=== PATIENT | female | born 1940 | race African-American/Black ===

== ENCOUNTER → 2016-04-16 | Outpatient (CLI) | payer MEDICARE, BC ==
--- NOTE | 2016-04-16 21:15 | PN ---
A 76-year-old female patient coming in for a CPAP compliancy follow-up. The patient was diagnosed having severe obstructive sleep apnea with an AHI of 29.9. Subsequently the patient was started on CPAP and currently she is being treated with CPAP therapy at a pressure of 8 cm of water. On today's compliancy follow-up, the patient is doing well. Her average CPAP use is around 4.9 hours per night. She is leaking only 5 liters per minute. Her AHI while on treatment is down to 11. I would like to see further improvement in her overall AHI while being on therapy. She was having issues with Simplus full face mask. She tells me that head gear was affecting her hair and she was looking for an alternative mask. It was noted that blood pressure was also high today and her blood pressure was 204/92 and she did not have any headaches or any focal neurological deficits. She will be discussing this with Dr. Ro her primary care physician. I strongly emphasized the patient see him as soon as possible regarding her blood pressure control. Her current Galena score is 7. Her current vital signs: BP is 204/92, pulse is 77, respirations 16, saturation 99% on room air. Temperature 97.9. Galena score is 7. GENERAL APPEARANCE: Calm, comfortable. HEENT: Short neck, crowding posterior pharynx. There is no goiter or neck masses. LUNGS: Diminished breath sounds bilaterally; otherwise clear. HEART: Sounds are regular rate and rhythm. Normal S1, S2. No S3. No murmurs. ABDOMEN: Soft, nontender, no organomegaly. EXTREMITIES: No edema, cyanosis, or clubbing. IMPRESSIONS: 1. Symptomatic obstructive sleep apnea, severe, with an AHI of 29.9, currently on CPAP at a pressure of 8 cm of water. 2. Adequate compliancy also would like to see increase in the average CPAP use per night. 3. Residual obstructive sleep apnea and the patient's AHI while on treatment is down to 11. Would like to see the study going below 5. PLAN: 1. Adjust the CPAP an auto CPAP unit with a minimum pressure of 4 and maximum pressure of 10. 2. Provide an AirFit F10 instead of the Simplus fullface mask. 3. See me back in 6 months' time in follow-up. 4. Follow up with Dr. Ro regarding blood pressure control.
== END | disposition home or self-care (01) ==
LOC: SLEEP 15:34
PROVIDERS: ATTEND Internal Medicine Critical Care Medicine
DX: G47.33 Obstructive sleep apnea (adult) (pediatric) (principal)

== ENCOUNTER 2017-02-12 11:26 | Observation (INO) | payer MEDICARE, BC ==
[2017-02-12] MEDS ORDERED: SODIUM CHLORIDE 0.9% 500 ML IV STA (12:43)
[2017-02-12] MEDS ORDERED: SODIUM CHLORIDE 0.9% 1,000 ML IV STA (12:43)
--- NOTE | 2017-02-12 12:46 | ED ---
Recheck HPI - General Chief Complaint: Recheck/Abnormal Lab/Rx Stated Complaint: HIGH BLOOD PRESSURE Time Seen by Provider: 02/12/17 12:38 Source: patient, RN notes reviewed, old records reviewed Mode of arrival: wheelchair Limitations: no limitations - History of Present Illness Initial Comments: This is a 77-year-old female history of hypertension who was here yesterday for the same treated and released who was getting her blood pressure checked today when she was supposed be getting evaluated for vertigo and found have elevated blood pressure of greater than 200 systolic. Patient denies any chest pain no fevers chills nausea vomiting sweats weakness to her arms or legs she does admit she been drinking less fluids over last several weeks. No new change in her medications no new change in food intake. - Related Data Home Medications Medication Instructions Recorded Confirmed Metoprolol Tartrate [Lopressor] 100 mg PO BID 02/12/15 02/12/17 Albuterol Sulfate [Proventil Hfa] 2 puff INHALATION RT-Q4H PRN 02/11/17 02/12/17 Arformoterol Tartrate [Brovana] 15 mcg INHALATION RT-BID 02/11/17 02/12/17 Atorvastatin [Lipitor] 20 mg PO HS 02/11/17 02/12/17 Budesonide [Pulmicort] 0.5 mg INHALATION RT-BID 02/11/17 02/12/17 Ferrous Sulfate [Feosol] 325 mg PO DAILY 02/11/17 02/12/17 Furosemide [Lasix] 10 mg PO DAILY 02/11/17 02/12/17 INSULIN LISPRO (humaLOG) [humaLOG] 8 units SQ AC-TID 02/11/17 02/12/17 Lisinopril [Zestril] 40 mg PO BID 02/11/17 02/12/17 hydrALAZINE HCL [Apresoline] 10 mg PO BID 02/11/17 02/12/17 Previous Rx's Medication Instructions Recorded Insulin Glargine [Lantus] 26 unit SQ HS #1 vial 02/14/15 Allergies Allergy/AdvReac Type Severity Reaction Status Date / Time latex Allergy Swelling,hi Verified 02/12/17 12:38 ves Review of Systems ROS Statement: Those systems with pertinent positive or pertinent negative responses have been documented in the HPI. ROS Other: All systems not noted in ROS Statement are negative. Past Medical History Past Medical History: Asthma, COPD, Diabetes Mellitus, Hypertension Additional Past Medical History / Comment(s): colitis diverticulitis History of Any Multi-Drug Resistant Organisms: None Reported Past Surgical History: Section, Hernia Repair, Hysterectomy, Joint Replacement, Orthopedic Surgery Additional Past Surgical History / Comment(s): rossana knee replacements, rossana carpal tunnel sx Past Anesthesia/Blood Transfusion Reactions: No Reported Reaction Past Psychological History: Anxiety Smoking Status: Former smoker Past Alcohol Use History: None Reported Past Drug Use History: None Reported - Past Family History Mother Family Medical History: Cancer, Diabetes Mellitus, Hypertension Father Family Medical History: Myocardial Infarction ([place]) General Exam - General Exam Comments Initial Comments: this is a well-developed well-nourished awake alert oriented 3 female Limitations: no limitations General appearance: alert, in no apparent distress Head exam: Present: atraumatic, normocephalic, normal inspection Eye exam: Present: normal appearance, PERRL, EOMI. Absent: scleral icterus, conjunctival injection, periorbital swelling ENT exam: Present: mucous membranes dry Neck exam: Present: normal inspection. Absent: tenderness, meningismus, lymphadenopathy Respiratory exam: Present: normal lung sounds bilaterally. Absent: respiratory distress, wheezes, rales, rhonchi, stridor Cardiovascular Exam: Present: regular rate, normal rhythm, normal heart sounds. Absent: systolic murmur, diastolic murmur, rubs, gallop, clicks GI/Abdominal exam: Present: soft, normal bowel sounds. Absent: distended, tenderness, guarding, rebound, rigid Extremities exam: Present: normal inspection, full ROM, normal capillary refill. Absent: tenderness, pedal edema, joint swelling, calf tenderness Back exam: Present: normal inspection Neurological exam: Present: alert, oriented X3, CN II-XII intact Psychiatric exam: Present: normal affect, normal mood Skin exam: Present: warm, dry, intact, normal color. Absent: rash Course Vital Signs 02/12/17 02/12/17 02/12/17 11:58 12:21 13:32 Temperature 97.4 F L Pulse Rate 57 L 68 65 Respiratory 18 20 18 Rate Blood Pressure 241/103 234/95 222/92 O2 Sat by Pulse 100 Oximetry 02/12/17 02/12/17 02/12/17 14:07 15:10 16:20 Temperature Pulse Rate 63 70 88 Respiratory 18 18 18 Rate Blood Pressure 194/80 215/95 174/70 O2 Sat by Pulse 97 97 Oximetry Medical Decision Making - Medical Decision Making The patient persists in having labile hypertension and some vague symptoms. This is her second visit for the same. I did discuss case with Dr. Reed patient will be admitted for evaluation of labile hypertension - Lab Data Result diagrams: 02/12/17 12:25 02/12/17 12:25 Lab Results 02/12/17 02/12/17 02/12/17 Range/Units 12:25 12: 12:25 WBC 6.8 (3.8-10.6) k/uL RBC 3.50 L (3.80-5.40) m/uL Hgb 10.5 L (11.4-16.0) gm/dL Hct 33.3 L (34.0-46.0) % MCV 95.1 (80.0-100.0) fL MCH 29.9 (25.0-35.0) pg MCHC 31.4 (31.0-37.0) g/dL RDW 14.6 (11.5-15.5) % Plt Count 216 (150-450) k/uL Neutrophils % 60 % Lymphocytes % 25 % Monocytes % 5 % Eosinophils % 7 % Basophils % 1 % Neutrophils # 4.1 (1.3-7.7) k/uL Lymphocytes # 1.7 (1.0-4.8) k/uL Monocytes # 0.3 (0-1.0) k/uL Eosinophils # 0.5 (0-0.7) k/uL Basophils # 0.0 (0-0.2) k/uL Hypochromasia Slight Sodium 141 (137-145) mmol/L Potassium 4.3 (3.5-5.1) mmol/L Chloride 103 (98-107) mmol/L Carbon Dioxide 29 (22-30) mmol/L Anion Gap 9 mmol/L BUN 15 (7-17) mg/dL Creatinine 0.89 (0.52-1.04) mg/dL Est GFR (MDRD) Af Amer >60 (>60 ml/min/1.73 sqM) Est GFR (MDRD) Non-Af >60 (>60 ml/min/1.73 sqM) Glucose 64 L (74-99) mg/dL Calcium 9.8 (8.4-10.2) mg/dL Magnesium 1.8 (1.6-2.3) mg/dL Total Bilirubin 0.6 (0.2-1.3) mg/dL AST 31 (14-36) U/L ALT 43 (9-52) U/L Alkaline Phosphatase 133 H (38-126) U/L Total Creatine Kinase 68 (30-135) U/L CK-MB (CK-2) 0.9 (0.0-2.4) ng/mL CK-MB (CK-2) Rel Index 1.3 Total Protein 7.3 (6.3-8.2) g/dL Albumin 3.7 (3.5-5.0) g/dL - EKG Data -: EKG Interpreted by Ny EKG shows normal: sinus rhythm (Normal sinus rhythm a 68. Interval 164 QRS 112 daily since QTC of 422/[address]-T wave changes) Disposition Clinical Impression: Labile hypertension Disposition: ADMITTED IP TO THIS HOSP Condition: Stable Referrals: Ross Ro DO [Primary Care Provider] - 1-2 days
[2017-02-12 13:02] LABS: Basophils % (A) 1 %; Eosinophils # (A) 0.5 k/uL (0-0.7); Eosinophils % (A) 7 %; HCT 33.3 % (34.0-46.0); HGB 10.5 gm/dL (11.4-16.0); Hypochromasia Slight; Lymphocytes # (A) 1.7 k/uL (1.0-4.8); Lymphocytes % (A) 25 %; MCH 29.9 pg (25.0-35.0); MCHC 31.4 g/dL (31.0-37.0); MCV 95.1 fL (80.0-100.0); Mean Platelet Volume 8.2; Monocytes # (A) 0.3 k/uL (0-1.0); Monocytes % (A) 5 %; Neutrophils # (A) 4.1 k/uL (1.3-7.7); Neutrophils % (A) 60 %; Platelet Count 216 k/uL (150-450); RDW 14.6 % (11.5-15.5); WBC 6.8 k/uL (3.8-10.6)
[2017-02-12 13:14] LABS: ALT 43 U/L (9-52); AST 31 U/L (14-36); Albumin 3.7 g/dL (3.5-5.0); Alkaline Phosphatase 133 U/L (38-126); Anion Gap 9 mmol/L; Blood Urea Nitrogen 15 mg/dL (7-17); Calcium 9.8 mg/dL (8.4-10.2); Carbon Dioxide 29 mmol/L (22-30); Chloride 103 mmol/L (98-107); Glucose 64 mg/dL (74-99); Magnesium 1.8 mg/dL (1.6-2.3); Potassium 4.3 mmol/L (3.5-5.1); Sodium 141 mmol/L (137-145); Total Bilirubin 0.6 mg/dL (0.2-1.3); Total Protein 7.3 g/dL (6.3-8.2)
[2017-02-12 13:30] LABS: Creatine Kinase MB 0.9 ng/mL (0.0-2.4)
[2017-02-12] MEDS ORDERED: hydrALAZINE HCL 20 MG/ML 1 ML VIAL IVP STA ×2 (13:35→15:19)
[2017-02-12] MEDS ORDERED: NALOXONE 0.4 MG/ML 1 ML VIAL IV PRN (16:53)
[2017-02-12 18:19] LABS: Glucose,Whole Blood 124 mg/dL (75-99)
[2017-02-12] MEDS ORDERED: hydrALAZINE HCL 20 MG/ML 1 ML VIAL IVP PRN (18:31)
[2017-02-12] MEDS: INSULIN ASPART 100 UNIT/ML 1 ML 10 ML VIAL SQ SCH (19:04)
[2017-02-12] MEDS: LISINOPRIL 20 MG TAB PO SCH (19:04)
[2017-02-12] MEDS: traMADol 50 MG TAB PO SCH ×2 (19:04→21:33)
[2017-02-12] MEDS: hydrALAZINE HCL 10 MG TAB PO SCH (19:05)
[2017-02-12] MEDS: METOPROLOL TARTRATE 50 MG TAB PO SCH (19:05)
[2017-02-12] MEDS: ACETAMINOPHEN TAB 500 MG TAB PO PRN (19:43)
--- NOTE | 2017-02-12 19:58 | HP ---
HISTORY AND PHYSICAL CHIEF COMPLAINT: Elevated blood pressure. BRIEF HISTORY: The patient is a 77-year-old female patient with a history of hypertension, diabetes, COPD, who presents to the ED with the complaint of high blood pressure. Patient was in the ED for same complaint yesterday, at which time blood pressure was treated and it improved and she was sent home. Yesterday the patient presented with a complaint of vertigo and upon evaluation she was found to have a systolic blood pressure greater than 200. The patient presents today with a complaint of not feeling well. Again, blood pressure was checked in the ED and systolic blood pressure was found to be to 222. The patient denies any chest pain, any vision or speech changes, any weakness or numbness in the arms or legs. She does admit to poor oral intake and weakness. PAST MEDICAL HISTORY: Significant for asthma, COPD, history of diabetes, hypertension, history of diverticulosis, anxiety. PAST SURGICAL HISTORY: Significant for section, hernia repair, hysterectomy, joint replacement and bilateral knee replacement, bilateral carpal tunnel surgery. PAST SOCIAL HISTORY: She is a former smoker, quit a long time ago. No history of alcohol abuse or drug abuse. FAMILY HISTORY: Significant for diabetes and hypertension in mother, history of MD in father. REVIEW OF SYSTEM: Constitutional: The patient has no fever or chills. HEENT: Denies vision or speech changes. Respiratory: No shortness of breath or cough or congestion. Cardiovascular: No chest pain. No palpitations. Neurological: The patient denies any focal weakness or numbness, any vision or speech changes. Musculoskeletal: Denies any back pain or any joint pain or tenderness. Endocrine: No polyuria, polydipsia. Does have history of diabetes. Heme/Oncology: No anemia. No rashes, ecchymoses or petechiae. The rest of the 14-point review of system is negative. PHYSICAL EXAMINATION: Patient is awake, alert and oriented x3. She is in no acute distress. VITAL SIGNS: Temperature 97.4, pulse 57, respirations 18, blood pressure 241/103 upon presentation to ED. Pulse ox 100%. HEENT: Atraumatic, normocephalic. Pupils equal and reactive to light. Extraocular movements intact. Buccal mucosa is fair. NECK: Supple. No goiter or lymphadenopathy. JVD is negative. No carotid bruit heard. LUNGS: Clear to auscultate. No rales or wheezes. Heart is regular rate and rhythm without any murmurs or gallop rhythm. ABDOMEN: Soft, nontender, nondistended. Bowel sounds positive. EXTREMITIES: No edema clubbing or cyanosis. Pulses are palpable. MUSCULOSKELETAL: The patient has range of motion of all 4 extremities. No joint swelling. BACK: Inspection is normal. NEUROLOGIC EXAMINATION: The patient is alert, oriented x3. Cranial nerves 2 through 12 grossly intact. No gross motor or sensory deficit. PSYCHIATRIC: The patient has normal affect and mood. SKIN: Warm, dry, intact with normal color. No rashes. LAB AND X-RAY: CBC, white blood count of 6.8, hemoglobin 10.5, hematocrit 33.3, and platelet count of 216,000. Chemical profile, sodium 141, potassium 4.3, chloride 103, bicarb 29, BUN 15, creatinine 0.8, glucose 64. EKG shows normal sinus rhythm, no acute ST-T wave changes. ASSESSMENT: 1. Accelerated hypertension. 2. Anemia. 3. Hypertension. 4. Chronic obstructive pulmonary disease with asthma. PLAN: Admit the patient to monitored floor. I am going to monitor cardiac enzymes and EKG. Will monitor vital signs per unit protocol. Will use IV hydralazine p.r.n. for markedly elevated blood pressure, systolic greater than 180. Will order neuro checks per unit protocol. Resume all home medications and will monitor CBC and order stool occult blood to check etiology of anemia. Will order iron studies. The patient is ordered DVT prophylaxis. Patient is FULL CODE. MMODL / IJN: [id number] /
[2017-02-12 21:21] LABS: Glucose,Whole Blood 111 mg/dL (75-99)
[2017-02-12] MEDS: BUDESONIDE 0.5 MG/2 ML NEBU INHALATION SCH (21:32)
[2017-02-12] MEDS: FORMOTEROL FUMARATE 20 MCG/2 ML NEBU INHALATION SCH (21:32)
[2017-02-12] MEDS: ATORVASTATIN 20 MG TAB PO SCH (21:33)
[2017-02-12] MEDS: HEPARIN SODIUM,PORCINE 5,000 UNIT/ML 1 ML VIAL SQ SCH (21:33)
[2017-02-12] MEDS: INSULIN DETEMIR 100 UNIT/ML 10 ML VIAL SQ SCH (21:34)
[2017-02-12] MEDS: ALBUTEROL NEBULIZED 2.5 MG/3 ML INHALATION PRN (21:47)
[2017-02-13] MEDS: ALBUTEROL NEBULIZED 2.5 MG/3 ML INHALATION PRN ×5 (03:34→20:11)
[2017-02-13 06:02] LABS: Glucose,Whole Blood 157 mg/dL (75-99)
[2017-02-13 06:31] LABS: Anisocytosis Slight; Basophils % (A) 1 %; Eosinophils # (A) 0.4 k/uL (0-0.7); Eosinophils % (A) 5 %; HCT 31.3 % (34.0-46.0); HGB 9.8 gm/dL (11.4-16.0); Hypochromasia Moderate; Lymphocytes # (A) 1.3 k/uL (1.0-4.8); Lymphocytes % (A) 18 %; MCHC 31.2 g/dL (31.0-37.0); Mean Platelet Volume 8.9; Monocytes # (A) 0.4 k/uL (0-1.0); Monocytes % (A) 6 %; Neutrophils # (A) 4.9 k/uL (1.3-7.7); Neutrophils % (A) 69 %; Platelet Count 184 k/uL (150-450); RBC 3.26 m/uL (3.80-5.40); RDW 16.1 % (11.5-15.5); WBC 7.1 k/uL (3.8-10.6)
[2017-02-13 06:51] LABS: Anion Gap 8 mmol/L; Blood Urea Nitrogen 18 mg/dL (7-17); Calcium 9.4 mg/dL (8.4-10.2); Carbon Dioxide 29 mmol/L (22-30); Chloride 102 mmol/L (98-107); Glucose 140 mg/dL (74-99); Potassium 4.2 mmol/L (3.5-5.1); Sodium 139 mmol/L (137-145)
[2017-02-13] MEDS: INSULIN ASPART 100 UNIT/ML 1 ML 10 ML VIAL SQ SCH ×3 (07:02→16:58)
[2017-02-13] MEDS: FORMOTEROL FUMARATE 20 MCG/2 ML NEBU INHALATION SCH ×2 (07:52→20:08)
[2017-02-13] MEDS: BUDESONIDE 0.5 MG/2 ML NEBU INHALATION SCH ×2 (07:52→20:07)
[2017-02-13] MEDS: FERROUS SULFATE 325 MG TAB PO SCH ×2 (08:32→08:34)
[2017-02-13] MEDS: HEPARIN SODIUM,PORCINE 5,000 UNIT/ML 1 ML VIAL SQ SCH ×2 (08:32→08:33)
[2017-02-13] MEDS: FUROSEMIDE 10 MG TAB PO SCH ×2 (08:32→08:34)
[2017-02-13] MEDS: LISINOPRIL 20 MG TAB PO SCH ×2 (08:34→21:29)
[2017-02-13] MEDS: METOPROLOL TARTRATE 50 MG TAB PO SCH ×2 (08:34→21:29)
[2017-02-13] MEDS: hydrALAZINE HCL 10 MG TAB PO SCH ×2 (08:34→21:29)
[2017-02-13] MEDS: traMADol 50 MG TAB PO SCH ×3 (08:37→21:41)
[2017-02-13 11:08] LABS: Iron Saturation 16.74 (12.00-45.00)
[2017-02-13 11:40] LABS: Glucose,Whole Blood 183 mg/dL (75-99)
[2017-02-13 16:36] LABS: Glucose,Whole Blood 105 mg/dL (75-99)
[2017-02-13] MEDS: amLODIPine 5 MG TAB PO SCH (16:56)
[2017-02-13 21:17] LABS: Glucose,Whole Blood 172 mg/dL (75-99)
[2017-02-13] MEDS: ATORVASTATIN 20 MG TAB PO SCH (21:29)
[2017-02-13] MEDS: INSULIN DETEMIR 100 UNIT/ML 10 ML VIAL SQ SCH (21:42)
--- NOTE | 2017-02-13 23:04 | P.PN ---
Objective - Vital Signs Vital signs: Vital Signs Temp 97.3 F L 02/13/17 20:00 Pulse 80 02/13/17 20:33 Resp 16 02/13/17 20:00 BP 182/79 02/13/17 20:00 Pulse Ox 96 02/13/17 20:00 Intake & Output 02/13/17 02/13/17 02/14/17 06:59 18:59 06:59 Intake Total 20 460 10 Balance 20 460 10 Weight 146.4 kg Intake: IV 20 10 0.9 20 10 Oral 460 Other: # Voids 1 1 - Labs CBC & Chem 7: 02/13/17 05:34 02/13/17 05:35 Labs: Abnormal Lab Results - Last 24 Hours (Table) 02/13/17 02/13/17 02/13/17 Range/Units 05:34 05:35 05:35 RBC 3.26 L (3.80-5.40) m/uL Hgb 9.8 L (11.4-16.0) gm/dL Hct 31.3 L (34.0-46.0) % RDW 16.1 H (11.5-15.5) % BUN 18 H (7-17) mg/dL Glucose 140 H (74-99) mg/dL POC Glucose (mg/dL) (75-99) mg/dL Iron 37 L (50-170) ug/dL TIBC 221 L (228-460) ug/dL 02/13/17 02/13/17 02/13/17 Range/Units 06:00 11:37 16:27 RBC (3.80-5.40) m/uL Hgb (11.4-16.0) gm/dL Hct (34.0-46.0) % RDW (11.5-15.5) % BUN (7-17) mg/dL Glucose (74-99) mg/dL POC Glucose (mg/dL) 157 H 183 H 105 H (75-99) mg/dL Iron (50-170) ug/dL TIBC (228-460) ug/dL 02/13/17 Range/Units 21:15 RBC (3.80-5.40) m/uL Hgb (11.4-16.0) gm/dL Hct (34.0-46.0) % RDW (11.5-15.5) % BUN (7-17) mg/dL Glucose (74-99) mg/dL POC Glucose (mg/dL) 172 H (75-99) mg/dL Iron (50-170) ug/dL TIBC (228-460) ug/dL
[2017-02-14 06:15] LABS: Glucose,Whole Blood 144 mg/dL (75-99)
[2017-02-14] MEDS: INSULIN ASPART 100 UNIT/ML 1 ML 10 ML VIAL SQ SCH ×3 (07:03→17:17)
[2017-02-14] MEDS: amLODIPine 5 MG TAB PO SCH (08:41)
[2017-02-14] MEDS: HEPARIN SODIUM,PORCINE 5,000 UNIT/ML 1 ML VIAL SQ SCH ×2 (08:41→21:38)
[2017-02-14] MEDS: METOPROLOL TARTRATE 50 MG TAB PO SCH ×2 (08:42→21:39)
[2017-02-14] MEDS: hydrALAZINE HCL 10 MG TAB PO SCH ×2 (08:42→21:38)
[2017-02-14] MEDS: LISINOPRIL 20 MG TAB PO SCH ×2 (08:43→21:39)
[2017-02-14] MEDS: traMADol 50 MG TAB PO SCH ×3 (08:46→21:40)
[2017-02-14] MEDS: ALBUTEROL NEBULIZED 2.5 MG/3 ML INHALATION PRN ×4 (08:48→20:20)
[2017-02-14] MEDS: BUDESONIDE 0.5 MG/2 ML NEBU INHALATION SCH ×2 (08:48→20:20)
[2017-02-14] MEDS: FORMOTEROL FUMARATE 20 MCG/2 ML NEBU INHALATION SCH ×2 (08:48→20:20)
[2017-02-14 11:46] LABS: Glucose,Whole Blood 95 mg/dL (75-99)
[2017-02-14 17:01] LABS: Glucose,Whole Blood 175 mg/dL (75-99)
--- NOTE | 2017-02-14 20:57 | PN ---
PROGRESS NOTE DATE OF SERVICE: 02/14/2017. HISTORY: The patient is in bed, claims she just walked to the bathroom and did not have any concerns. Cough is better. PHYSICAL EXAMINATION: VITAL SIGNS: Temperature of 97.6, pulse 76, respirations 16, blood pressure 148/ 67, O2 saturation 99% on room air. HEENT: Atraumatic, normocephalic. Pupils equal and reactive to light. Extraocular movements intact. Buccal mucosa is fair. NECK: Supple. No goiter or lymphadenopathy. JVD is negative. No carotid bruit heard. LUNGS: Scattered rhonchi and no wheezing. Fair air entry. HEART: Irregular rate and rhythm without any murmurs or gallops. ABDOMEN: Soft, obese, nontender, nondistended. Bowel sounds positive. EXTREMITIES: No edema, clubbing, cyanosis. NEUROLOGIC: No gross motor or sensory deficit. Cranial nerves 2 through 12 grossly intact. LYMPHATICS: No lymph nodes palpable in neck, axilla, or the neck. SKIN: Warm, dry, intact. MUSCULOSKELETAL: No joint deformities. No tenderness or swelling. LABS: The patient's blood sugars have been stable at 175. CBC, white blood count 7.1, hemoglobin 9.8, hematocrit 31.3, and platelet count of 184. Chemical profile, sodium 139, potassium 4.2, chloride 103, bicarb 29, BUN 18, creatinine 1. Total iron 37, iron binding capacity of 221. ASSESSMENT: 1. Accelerated hypertension. 2. Anemia. 3. Hypertension. 4. Chronic obstructive pulmonary disease. 5. Morbid obesity. The patient's cardiac enzymes and EKG have been stable. The patient has not used IV hydralazine. Blood pressure has been under control on added Norvasc. Will DC neuro checks. Will increase activity. Stool occult blood has been negative. Iron studies were reviewed. Anemia is most likely chronic anemia. We will add iron to the regimen. Will consult PT OT to further increase activity. Possible discharge home tomorrow. MMODL / IJN: [id number] / MTDSharif
[2017-02-14] MEDS ORDERED: INSULIN DETEMIR 100 UNIT/ML 10 ML VIAL SQ SCH (21:00)
[2017-02-14 21:17] LABS: Glucose,Whole Blood 152 mg/dL (75-99)
[2017-02-14] MEDS: ATORVASTATIN 20 MG TAB PO SCH (21:38)
[2017-02-14 23:45] LABS: Glucose,Whole Blood 156 mg/dL (75-99)
[2017-02-15] MEDS: ALBUTEROL NEBULIZED 2.5 MG/3 ML INHALATION PRN ×3 (05:43→13:03)
[2017-02-15] MEDS: ACETAMINOPHEN TAB 500 MG TAB PO PRN (06:00)
[2017-02-15 06:26] LABS: Glucose,Whole Blood 127 mg/dL (75-99)
[2017-02-15] MEDS: INSULIN ASPART 100 UNIT/ML 1 ML 10 ML VIAL SQ SCH ×2 (06:57→12:19)
[2017-02-15] MEDS: METOPROLOL TARTRATE 50 MG TAB PO SCH (08:02)
[2017-02-15] MEDS: amLODIPine 5 MG TAB PO SCH (08:02)
[2017-02-15] MEDS: LISINOPRIL 20 MG TAB PO SCH (08:02)
[2017-02-15] MEDS: HEPARIN SODIUM,PORCINE 5,000 UNIT/ML 1 ML VIAL SQ SCH (08:02)
[2017-02-15] MEDS: FUROSEMIDE 10 MG TAB PO SCH (08:03)
[2017-02-15] MEDS: FERROUS SULFATE 325 MG TAB PO SCH (08:03)
[2017-02-15] MEDS: traMADol 50 MG TAB PO SCH (08:03)
[2017-02-15] MEDS: hydrALAZINE HCL 10 MG TAB PO SCH (08:03)
[2017-02-15 08:09] VITALS: TEMP 96.4
[2017-02-15] MEDS: FORMOTEROL FUMARATE 20 MCG/2 ML NEBU INHALATION SCH (08:28)
[2017-02-15] MEDS: BUDESONIDE 0.5 MG/2 ML NEBU INHALATION SCH (08:28)
[2017-02-15 12:08] LABS: Glucose,Whole Blood 134 mg/dL (75-99)
[2017-02-15 12:45] VITALS: BP 163/76; RESP 18
[2017-02-15 13:15] VITALS: PULSE 68
--- NOTE | 2017-03-19 08:25 | DS ---
DISCHARGE SUMMARY DATE OF ADMISSION: 02/12/2017 DATE OF DISCHARGE: 02/15/2017 ADMISSION DIAGNOSES: Admission diagnoses on the patient was: 1. Accelerated hypertension. 2. Anemia. 3. Hypertension. 4. Chronic obstructive pulmonary disease/asthma. DISCHARGE DIAGNOSES: 1. Accelerated hypertension. 2. Anemia. 3. Hypertension. 4. Chronic obstructive pulmonary disease/asthma. BRIEF HISTORY ON THIS PATIENT: This 77-year-old female patient brought to the ED with a complaint of elevated blood pressure. The patient was seen in the ED the day prior to this with the same complaint at which time, she improved and was sent home. The patient was also complaining of vertigo at the time of evaluation and the systolic blood pressure was greater than 200. PAST MEDICAL HISTORY: Significant for asthma, COPD, diabetes, hypertension, and history of diverticulosis and anxiety physical. PHYSICAL EXAMINATION: Physical examination on admission, patient was is awake, alert, oriented x3. VITAL SIGNS: Temperature 97.4, pulse 57, respiration 18, blood pressure 241/103. HEENT: Atraumatic, normocephalic. Pupils equal and react to light. Extraocular movements intact. Buccal mucosa fair. NECK: Supple. LUNGS: Clear to auscultation. No rales, rhonchi, wheezes. HEART: Regular rate and rhythm without murmurs, gallop rhythm. ABDOMEN: Soft, nontender, nondistended. Bowel sounds positive. EXTREMITIES: No edema, clubbing or cyanosis. Pulses palpable. Neurological examination was unremarkable at the time of examination. LABS: CBC, white blood count 6.8, hemoglobin 10.5, hematocrit 33.3, and platelet count of 216. Chemical profile, sodium 141, potassium 4.3, chloride 103, bicarb 29, BUN 15, creatinine 0.8, glucose 64. EKG did not show any acute changes. BRIEF HOSPITAL COURSE: The patient was admitted to the monitored floor. Cardiac enzymes and EKG were monitored and vital signs were monitored per protocol. Plan was to use IV hydralazine p.r.n. for systolic greater than 180. Patient was given neuro checks per protocol. Home medications were continued. Due to anemia, patient was scheduled to have a followup CBC and stool occult blood. Iron studies were ordered. The patient remained stable. Her blood pressure improved markedly. Cardiac enzymes were negative. Norvasc was added to the blood pressure medication list for isolated systolic blood pressure. Patient's stool occult blood remained negative. Iron studies were unremarkable. Her anemia was thought most likely secondary to chronic disease. She was started on iron, oral iron. PT, OT were consulted. Activity was increased and patient was discharged in a stable condition with the plan to follow up with primary care physician with new prescriptions of: 1. Amlodipine 5 mg daily. 2. Tramadol 50 mg t.i.d. and with the plan to continue with 1. Proventil inhaler 2 puffs q.i.d. 2. Brovana 15 mcg twice a day. 3. Lipitor 20 mg q.h.s. 4. Pulmicort 0.5 mg b.i.d. 5. Iron sulfate 325 mg daily. 6. Lasix 10 mg daily. 7. Lantus 26 units s/q q.h.s. 8. Zestril 40 mg po daily. 9. Lopressor 100 mg b.i.d. 10.Hydralazine 10 mg b.i.d. MMIANL / IJN: [id number] / MTDD
== END 2017-02-15 13:38 | disposition home or self-care (01) ==
LOC: EC 11:26 → 6SEL 16:54
PROVIDERS: ADMIT Internal Medicine; ATTEND Internal Medicine
DX: I10 Essential (primary) hypertension (principal); D64.9 Anemia, unspecified; J44.9 Chronic obstructive pulmonary disease, unspecified; E11.9 Type 2 diabetes mellitus without complications; E66.01 Morbid (severe) obesity due to excess calories; Z87.891 Personal history of nicotine dependence; Z79.4 Long term (current) use of insulin; Z79.84 Long term (current) use of oral hypoglycemic drugs; Z79.51 Long term (current) use of inhaled steroids; Z79.899 Other long term (current) drug therapy; Z91.040 Latex allergy status; Z82.49 Family history of ischemic heart disease and other diseases of the circulatory system
CPT/HCPCS: 99285 ×2; 96374 ×2; 96376 ×3; 96361 ×8; 96372 ×4; 36415; 94640 ×7; 93005; 80053; 80048; 82550; 82553; 83540; 83550; 83735; 84484; 85025 ×2; G0378 ×4; J0360 ×2; J1644 ×4

== ENCOUNTER → 2017-02-12 | Outpatient (CLI) | payer MEDICARE, BC | END | disposition home or self-care (01) | LOC: CANPRECLI → NEUROMAIN 10:35 | PROVIDERS: ATTEND Otolaryngology | DX: Z53.9 Procedure and treatment not carried out, unspecified reason (principal) ==

== ENCOUNTER 2022-03-18 06:15 | Emergency (ER) | payer MEDICARE ==
[2022-03-18 06:25] VITALS: TEMP 98.1
[2022-03-18] MEDS ORDERED: HYDROcodone/APAP 5-325MG 1 EACH TAB PO STA (06:34)
--- NOTE | 2022-03-18 06:39 | ED ---
Extremity Problem HPI - General Chief complaint: Extremity Problem,Nontraumatic Stated complaint: finger and shoulder pain lt Time Seen by Provider: 03/18/22 06:26 Source: patient, RN notes reviewed Mode of arrival: wheelchair Limitations: no limitations - History of Present Illness Initial comments: 82-year-old female presents emergency Department with chief complaint of arthritic pain. Patient states that she has chronic pain in her joints but states it's worsen or left hand fifth digit left shoulder neck. Patient states that this is chronic pain she denies any chest pain or shortness of breath. Denies any fevers or chills. She states that she normal takes tramadol which she did get some relief with this morning but not enough relief. Patient denies any trauma. States the finger is swollen. Patient has fevers chills no cough or cold like symptoms. Patient offers no other complaints. - Related Data Home Medications Medication Instructions Recorded Confirmed Metoprolol Tartrate [Lopressor] 100 mg PO BID 02/12/15 02/12/17 Albuterol Sulfate [Proventil Hfa] 2 puff INHALATION RT-Q4H PRN 02/11/17 02/12/17 Arformoterol Tartrate [Brovana] 15 mcg INHALATION RT-BID 02/11/17 02/12/17 Atorvastatin [Lipitor] 20 mg PO HS 02/11/17 02/12/17 Budesonide [Pulmicort] 0.5 mg INHALATION RT-BID 02/11/17 02/12/17 Ferrous Sulfate [Iron (65 MG 325 mg PO DAILY 02/11/17 02/12/17 Elemental)] Furosemide [Lasix] 10 mg PO DAILY 02/11/17 02/12/17 INSULIN LISPRO (humaLOG) [humaLOG] 8 units SQ AC-TID 02/11/17 02/12/17 hydrALAZINE HCL [Apresoline] 10 mg PO BID 02/11/17 02/12/17 lisinopriL [Zestril] 40 mg PO BID 02/11/17 02/12/17 Previous Rx's Medication Instructions Recorded Insulin Glargine [Lantus Vial] 26 unit SQ HS #1 vial 02/14/15 amLODIPine [Norvasc] 5 mg PO DAILY #30 tab 02/15/17 traMADol HCl [Ultram] 50 mg PO TID #30 tab 02/15/17 Allergies Allergy/AdvReac Type Severity Reaction Status Date / Time latex Allergy Swelling,hi Verified 03/18/22 06:25 ves Review of Systems ROS Statement: Those systems with pertinent positive or pertinent negative responses have been documented in the HPI. ROS Other: All systems not noted in ROS Statement are negative. 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 djd, urinay incont-wears a brief. History of Any Multi-Drug Resistant Organisms: None Reported Past Surgical History: Section, Hernia Repair, Hysterectomy, Joint Replacement, Orthopedic Surgery Additional Past Surgical History / Comment(s): rossana knee replacements, rossana carpal tunnel sx, x4, hernia near naval, rossana cataracts. Past Anesthesia/Blood Transfusion Reactions: No Reported Reaction Past Psychological History: Anxiety Past Alcohol Use History: Occasional Past Drug Use History: None Reported - Past Family History Mother Family Medical History: Cancer, Diabetes Mellitus, Hypertension Father Family Medical History: Myocardial Infarction ([place]) General Exam Limitations: no limitations General appearance: alert, in no apparent distress Head exam: Present: atraumatic, normocephalic, normal inspection Eye exam: Present: normal appearance, PERRL, EOMI. Absent: scleral icterus, conjunctival injection, periorbital swelling ENT exam: Present: normal exam, normal oropharynx, mucous membranes moist Neck exam: Present: normal inspection, full ROM. Absent: tenderness, meningismus, lymphadenopathy Respiratory exam: Present: normal lung sounds bilaterally. Absent: respiratory distress, wheezes, rales, rhonchi, stridor Cardiovascular Exam: Present: regular rate, normal rhythm, normal heart sounds. Absent: systolic murmur, diastolic murmur, rubs, gallop, clicks Extremities exam: Present: other (Tenderness to the left shoulder with and pain with range of motion neurovascular intact patient has tenderness to the left, fifth digit with mild swelling, no erythema no increase in warmth) Back exam: Present: full ROM. Absent: tenderness, paraspinal tenderness, vertebral tenderness Neurological exam: Present: alert, oriented X3, CN II-XII intact, reflexes normal. Absent: motor sensory deficit Skin exam: Present: warm, dry, intact, normal color. Absent: rash Course Vital Signs 03/18/22 06:17 Temperature 98.1 F Pulse Rate 60 Respiratory 16 Rate Blood Pressure 161/59 O2 Sat by Pulse 97 Oximetry Medical Decision Making - Medical Decision Making Was pt. sent in by a medical professional or institution (, ANGELIA, CONCRETE CRAFTSMAN, urgent care, hospital, or fdc...) When possible be specific @ -No Did you speak to anyone other than the patient for history (EMS, parent, family, police, friend...)? What history was obtained from this source @ -No Did you review nursing and triage notes (agree or disagree)? Why? @ -I reviewed and agree with nursing and triage notes Were old charts reviewed (outside hosp., previous admission, EMS record, old EKG, old radiological studies, urgent care reports/EKG's, fdc records)? Report findings @ -Prior labs were reviewed Differential Diagnosis (chest pain, altered mental status, abdominal pain women, abdominal pain men, vaginal bleeding, weakness, fever, dyspnea, syncope, headache, dizziness, GI bleed, back pain, seizure, CVA, palpatations, mental health)? @ -/Arthritis, fracture, dislocation, cellulitis, this list is not all- inclusive EKG interpreted by me (3pts min.). @ -None X-rays interpreted by me (1pt min.). @ -X-ray of the left shoulder shows arthritic changes, x-ray of the fifth digit left hand shows no acute fracture CT interpreted by me (1pt min.). @ -None done U/S interpreted by me (1pt. min.). @ -None done What testing was considered but not performed or refused? (CT, X-rays, U/S, labs)? Why? @ -None What meds were considered but not given or refused? Why? @ -Considered steroids though patient has diabetic. Did you discuss the management of the patient with other professionals (professionals i.e. ANGELIA Mendez, CONCRETE CRAFTSMAN, lab, RT, psych nurse, social services assistant, aircraft servicer, teacher, parking enforcement officer, family preservation caseworker)? Give summary @ -No Was smoking cessation discussed for >3mins.? @ -No Was critical care preformed (if so, how long)? @ -No Were there social determinants of health that impacted care today? How? (Homelessness, low income, unemployed, alcoholism, drug addiction, transportation, low edu. Level, literacy, decrease access to med. care, [facility], rehab)? @ -No Was there de-escalation of care discussed even if they declined (Discuss DNR or withdrawal of care, Hospice)? DNR status @ -No What co-morbidities impacted this encounter? (DM, HTN, Smoking, COPD, CAD, Cancer, CVA, ARF, Chemo, Hep., AIDS, mental health diagnosis, sleep apnea, morbid obesity)? @ -Diabetes, and osteoarthritis Was patient admitted / discharged? Hospital course, mention meds given and route, prescriptions, significant lab abnormalities, going to OR and other pertinent info. @ -Discharged patient's x-ray does not reveal any specific findings patient pain is improved patient has is arthritis with no other complaints this pain with range of motion reproducible pain. Undiagnosed new problem with uncertain prognosis? @ -No Drug Therapy requiring intensive monitoring for toxicity (Heparin, Nitro, Insulin, Cardizem)? @ -No Were any procedures done? @ -No Diagnosis/symptom? @ -Osteoarthritis Acute, or Chronic, or Acute on Chronic? @ -Acute on chronic Uncomplicated (without systemic symptoms) or Complicated (systemic symptoms)? @ -Uncomplicated Side effects of treatment? @ -No Exacerbation, Progression, or Severe Exacerbation? @ -No Poses a threat to life or bodily function? How? (Chest pain, [place], [place], pneumonia, PE, COPD, DKA, ARF, appy, cholecystitis, CVA, Diverticulitis, Homicidal, Suicidal, threat to staff... and all critical care pts) @ -No Disposition Clinical Impression: Osteoarthritis, Finger pain, left Disposition: HOME SELF-CARE Condition: Stable Instructions (If sedation given, give patient instructions): Osteoarthritis (ED) Additional Instructions: Please return to the Emergency Department if symptoms worsen or any other concerns. Is patient prescribed a controlled substance at d/c from ED?: No Referrals: Ross Ro DO [Primary Care Provider] - 1-2 days Time of Disposition: 08:05
--- NOTE | 2022-03-18 07:06 | XR ---
EXAMINATION TYPE: XR shoulder complete LT DATE OF EXAM: 03/18/2022 COMPARISON: NONE HISTORY: Pain TECHNIQUE: 3 views FINDINGS: There is some spurring at the AC joint. Glenohumeral joint is intact. No fracture. There is minor spurring of the glenoid. IMPRESSION: There is some osteoarthritis. No fracture seen.
--- NOTE | 2022-03-18 07:07 | XR ---
EXAMINATION TYPE: XR finger LT DATE OF EXAM: 03/18/2022 COMPARISON: NONE HISTORY: Pain TECHNIQUE: 3 views FINDINGS: There is mild spurring of the IP joints. I see no fracture nor dislocation. There are no er osions. IMPRESSION: Mild osteoarthritis of the little finger. No fracture seen.
[2022-03-18] MEDS ORDERED: ACET/COD 300 MG/30 MG STARTER PACK 6 TAB BTL PO STA (08:01)
[2022-03-18 08:04] LABS: Glucose,Whole Blood 177 mg/dL (70-110)
[2022-03-18 08:21] VITALS: BP 140/43; PULSE 70; RESP 15
== END 2022-03-18 08:32 | disposition home or self-care (01) ==
LOC: EC 06:15
DX: M19.042 Primary osteoarthritis, left hand (principal); J44.9 Chronic obstructive pulmonary disease, unspecified; E11.9 Type 2 diabetes mellitus without complications; I10 Essential (primary) hypertension; F41.9 Anxiety disorder, unspecified; Z91.040 Latex allergy status; Z79.4 Long term (current) use of insulin; Z79.899 Other long term (current) drug therapy
CPT/HCPCS: 36415; 99284

== ENCOUNTER 2023-02-24 07:24 | Emergency (ER) | payer MEDICARE ==
[2023-02-24] MEDS ORDERED: METOCLOPRAMIDE 5 MG/ML 2 ML VIAL IVP STA (07:32)
[2023-02-24] MEDS ORDERED: SODIUM CHLORIDE 0.9% 500 ML 500 ML IV ONE (07:32)
--- NOTE | 2023-02-24 07:36 | ED ---
Nausea/Vomiting/Diarrhea HPI - General Chief complaint: Nausea/Vomiting/Diarrhea Stated complaint: VOMITING NAUSEA Time Seen by Provider: 02/24/23 07:27 Source: patient, EMS, RN notes reviewed Mode of arrival: EMS Limitations: no limitations - History of Present Illness Initial comments: 83-year-old female sent emergency Department chief complaint of nausea, cough congestion. Patient states that she wishes being treated for urinary tract infection states started last day of antibiotics. Patient states that overnight she started having some congestion, cough and achiness. Patient states that she woke up this morning and had nausea she did receive Zofran by EMS with minimal improvement. She denies any chest pain or shortness of breath she states she has minimally productive cough. Denies any diarrhea Tresa patient states her has similar symptoms. - Related Data Home Medications Medication Instructions Recorded Confirmed Metoprolol Tartrate [Lopressor] 100 mg PO BID 02/12/15 02/12/17 Albuterol Sulfate [Proventil Hfa] 2 puff INHALATION RT-Q4H PRN 02/11/17 02/12/17 Arformoterol Tartrate [Brovana] 15 mcg INHALATION RT-BID 02/11/17 02/12/17 Atorvastatin [Lipitor] 20 mg PO HS 02/11/17 02/12/17 Budesonide [Pulmicort] 0.5 mg INHALATION RT-BID 02/11/17 02/12/17 Ferrous Sulfate [Iron (65 MG 325 mg PO DAILY 02/11/17 02/12/17 Elemental)] Furosemide [Lasix] 10 mg PO DAILY 02/11/17 02/12/17 INSULIN LISPRO (humaLOG) [humaLOG] 8 units SQ AC-TID 02/11/17 02/12/17 hydrALAZINE HCL [Apresoline] 10 mg PO BID 02/11/17 02/12/17 lisinopriL [Zestril] 40 mg PO BID 02/11/17 02/12/17 Previous Rx's Medication Instructions Recorded Insulin Glargine [Lantus Vial] 26 unit SQ HS #1 vial 02/14/15 amLODIPine [Norvasc] 5 mg PO DAILY #30 tab 02/15/17 traMADol HCl [Ultram] 50 mg PO TID #30 tab 02/15/17 Nirmatrelvir/Ritonavir [Paxlovid See Rx Instructions .ROUTE 02/24/23 2X150 mg-100 mg (Eua)] .COMPLEX #30 tab Allergies Allergy/AdvReac Type Severity Reaction Status Date / Time latex Allergy Swelling,hi Verified 02/24/23 07:32 ves Review of Systems ROS Statement: Those systems with pertinent positive or pertinent negative responses have been documented in the HPI. ROS Other: All systems not noted in ROS Statement are negative. 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 djd, urinay incont-wears a brief. History of Any Multi-Drug Resistant Organisms: None Reported Past Surgical History: Section, Hernia Repair, Hysterectomy, Joint Replacement, Orthopedic Surgery Additional Past Surgical History / Comment(s): rossana knee replacements, rossana carpal tunnel sx, x4, hernia near naval, rossana cataracts. Past Anesthesia/Blood Transfusion Reactions: No Reported Reaction Past Psychological History: Anxiety Smoking Status: Never smoker Past Alcohol Use History: Occasional Past Drug Use History: None Reported - Past Family History Mother Family Medical History: Cancer, Diabetes Mellitus, Hypertension Father Family Medical History: Myocardial Infarction ([place]) General Exam Limitations: no limitations General appearance: alert, in no apparent distress Head exam: Present: atraumatic, normocephalic, normal inspection Eye exam: Present: normal appearance, PERRL, EOMI. Absent: scleral icterus, conjunctival injection, periorbital swelling ENT exam: Present: normal exam, normal oropharynx, mucous membranes moist Neck exam: Present: normal inspection, full ROM. Absent: tenderness, meningismus, lymphadenopathy Respiratory exam: Present: normal lung sounds bilaterally. Absent: respiratory distress, wheezes, rales, rhonchi, stridor Cardiovascular Exam: Present: regular rate, normal rhythm, normal heart sounds. Absent: systolic murmur, diastolic murmur, rubs, gallop, clicks GI/Abdominal exam: Present: soft, normal bowel sounds. Absent: distended, tenderness, guarding, rebound, rigid Course Vital Signs 02/24/23 07:29 Temperature 98.6 F Pulse Rate 69 Respiratory 18 Rate Blood Pressure 147/107 O2 Sat by Pulse 97 Oximetry Medical Decision Making - Medical Decision Making Was pt. sent in by a medical professional or institution (ANGELIA Mendez, WELDING PANTOGRAPH OPERATOR, urgent care, hospital, or [facility]...) When possible be specific @ -No Did you speak to anyone other than the patient for history (EMS, parent, family, police, friend...)? What history was obtained from this source @ -No Did you review nursing and triage notes (agree or disagree)? Why? @ -I reviewed and agree with nursing and triage notes Were old charts reviewed (outside hosp., previous admission, EMS record, old EKG, old radiological studies, urgent care reports/EKG's, [facility] records)? Report findings @ -No old charts were reviewed Differential Diagnosis (chest pain, altered mental status, abdominal pain women, abdominal pain men, vaginal bleeding, weakness, fever, dyspnea, syncope, headache, dizziness, GI bleed, back pain, seizure, CVA, palpatations, mental health, musculoskeletal)? @ -COVID 19, RSV, influenza, pneumonia, acute bronchitis, URI, this list is not all inclusive EKG interpreted by me (3pts min.). @ -None X-rays interpreted by me (1pt min.). @ -[Chest x-ray shows no acute cardiopulmonary process. CT interpreted by me (1pt min.). @ -None done U/S interpreted by me (1pt. min.). @ -None done What testing was considered but not performed or refused? (CT, X-rays, U/S, labs)? Why? @ -None What meds were considered but not given or refused? Why? @ -None Did you discuss the management of the patient with other professionals (professionals i.e. ANGELIA Mendez, WELDING PANTOGRAPH OPERATOR, lab, RT, psych nurse, protective services social worker, compressor station engineer chief, teacher, international first officer, showcase maker)? Give summary @ -No Was smoking cessation discussed for >3mins.? @ -No Was critical care preformed (if so, how long)? @ -No Were there social determinants of health that impacted care today? How? (Homelessness, low income, unemployed, alcoholism, drug addiction, transportation, low edu. Level, literacy, decrease access to med. care, group home, rehab)? @ -No Was there de-escalation of care discussed even if they declined (Discuss DNR or withdrawal of care, Hospice)? DNR status @ -No What co-morbidities impacted this encounter? (DM, HTN, Smoking, COPD, CAD, Cancer, CVA, ARF, Chemo, Hep., AIDS, mental health diagnosis, sleep apnea, morbid obesity)? @ -None Was patient admitted / discharged? Hospital course, mention meds given and route, prescriptions, significant lab abnormalities, going to OR and other pertinent info. @ -Discharged patient's laboratory studies are unremarkable patient was given IV fluids, antiemetics and feels improved she is covid 19 positive no hypoxia. Patient will be discharged in stable condition return parameters were discussed. Undiagnosed new problem with uncertain prognosis? @ -No Drug Therapy requiring intensive monitoring for toxicity (Heparin, Nitro, Insulin, Cardizem)? @ -No Were any procedures done? @ -No Diagnosis/symptom? @ -COVID-19 Acute, or Chronic, or Acute on Chronic? @ -[Acute Uncomplicated (without systemic symptoms) or Complicated (systemic symptoms)? @ -[Uncomplicated Side effects of treatment? @ -No Exacerbation, Progression, or Severe Exacerbation? @ -No Poses a threat to life or bodily function? How? (Chest pain, [place], [place], pneumonia, PE, COPD, DKA, ARF, appy, cholecystitis, CVA, Diverticulitis, Homicidal, Suicidal, threat to staff... and all critical care pts) @ -No - Lab Data Result diagrams: 02/24/23 07:34 02/24/23 07:34 Lab Results 02/24/23 02/24/23 02/24/23 Range/Units 07:34 07:34 07:34 WBC 6.1 (3.8-10.6) k/uL RBC 3.18 L (3.80-5.40) m/uL Hgb 9.9 L (11.4-16.0) gm/dL Hct 30.0 L (34.0-46.0) % MCV 94.6 (80.0-100.0) fL MCH 31.1 (25.0-35.0) pg MCHC 32.9 (31.0-37.0) g/dL RDW 15.8 H (11.5-15.5) % Plt Count 198 (150-450) k/uL MPV 7.9 Neutrophils % 73 % Lymphocytes % 11 % Monocytes % 7 % Eosinophils % 6 % Basophils % 1 % Neutrophils # 4.5 (1.3-7.7) k/uL Lymphocytes # 0.7 L (1.0-4.8) k/uL Monocytes # 0.4 (0-1.0) k/uL Eosinophils # 0.4 (0-0.7) k/uL Basophils # 0.0 (0-0.2) k/uL Hypochromasia Slight Sodium 137 (137-145) mmol/L Potassium 3.7 (3.5-5.1) mmol/L Chloride 102 (98-107) mmol/L Carbon Dioxide 25 (22-30) mmol/L Anion Gap 10 mmol/L BUN 14 (7-17) mg/dL Creatinine 0.78 (0.52-1.04) mg/dL Est GFR (CKD-EPI)AfAm 83 (>60 ml/min/1.73 sqM) Est GFR (CKD-EPI)NonAf 72 (>60 ml/min/1.73 sqM) Glucose 134 H (74-99) mg/dL Calcium 8.4 (8.4-10.2) mg/dL Total Bilirubin 0.8 (0.2-1.3) mg/dL AST 23 (14-36) U/L ALT 12 (4-34) U/L Alkaline Phosphatase 127 H (38-126) U/L Total Protein 6.4 (6.3-8.2) g/dL Albumin 3.2 L (3.5-5.0) g/dL Urine Color Yellow Urine Appearance Cloudy H (Clear) Urine pH 7.5 (5.0-8.0) Ur Specific [place] 1.019 (1.001-1.035) Urine Protein 2+ H (Negative) Urine Glucose (UA) Negative (Negative) Urine Ketones Negative (Negative) Urine Blood Negative (Negative) Urine Nitrite Negative (Negative) Urine Bilirubin Negative (Negative) Urine Urobilinogen <2.0 (<2.0) mg/dL Ur Leukocyte Esterase Negative (Negative) Urine RBC 1 (0-5) /hpf Urine WBC 5 (0-5) /hpf Ur Squamous Epith Cells 10 H (0-4) /hpf Urine Bacteria Rare H (None) /hpf Urine Mucus Rare H (None) /hpf Influenza Type A (PCR) (Not Detectd) Influenza Type B (PCR) (Not Detectd) RSV (PCR) (Not Detectd) SARS-CoV-2 (PCR) (Not Detectd) 02/24/23 Range/Units 07:34 WBC (3.8-10.6) k/uL RBC (3.80-5.40) m/uL Hgb (11.4-16.0) gm/dL Hct (34.0-46.0) % MCV (80.0-100.0) fL MCH (25.0-35.0) pg MCHC (31.0-37.0) g/dL RDW (11.5-15.5) % Plt Count (150-450) k/uL MPV Neutrophils % % Lymphocytes % % Monocytes % % Eosinophils % % Basophils % % Neutrophils # (1.3-7.7) k/uL Lymphocytes # (1.0-4.8) k/uL Monocytes # (0-1.0) k/uL Eosinophils # (0-0.7) k/uL Basophils # (0-0.2) k/uL Hypochromasia Sodium (137-145) mmol/L Potassium (3.5-5.1) mmol/L Chloride (98-107) mmol/L Carbon Dioxide (22-30) mmol/L Anion Gap mmol/L BUN (7-17) mg/dL Creatinine (0.52-1.04) mg/dL Est GFR (CKD-EPI)AfAm (>60 ml/min/1.73 sqM) Est GFR (CKD-EPI)NonAf (>60 ml/min/1.73 sqM) Glucose (74-99) mg/dL Calcium (8.4-10.2) mg/dL Total Bilirubin (0.2-1.3) mg/dL AST (14-36) U/L ALT (4-34) U/L Alkaline Phosphatase (38-126) U/L Total Protein (6.3-8.2) g/dL Albumin (3.5-5.0) g/dL Urine Color Urine Appearance (Clear) Urine pH (5.0-8.0) Ur Specific [place] (1.001-1.035) Urine Protein (Negative) Urine Glucose (UA) (Negative) Urine Ketones (Negative) Urine Blood (Negative) Urine Nitrite (Negative) Urine Bilirubin (Negative) Urine Urobilinogen (<2.0) mg/dL Ur Leukocyte Esterase (Negative) Urine RBC (0-5) /hpf Urine WBC (0-5) /hpf Ur Squamous Epith Cells (0-4) /hpf Urine Bacteria (None) /hpf Urine Mucus (None) /hpf Influenza Type A (PCR) Not Detected (Not Detectd) Influenza Type B (PCR) Not Detected (Not Detectd) RSV (PCR) Not Detected (Not Detectd) SARS-CoV-2 (PCR) Detected A (Not Detectd) Disposition Clinical Impression: COVID-19 Disposition: HOME SELF-CARE Condition: Stable Instructions (If sedation given, give patient instructions): COVID-19 (Coronavirus Disease 2019) (ED) Additional Instructions: Please return to the Emergency Department if symptoms worsen or any other concerns. Prescriptions: Nirmatrelvir/Ritonavir [Paxlovid 2X150 mg-100 mg (Eua)] See Rx Instructions .ROUTE .COMPLEX #30 tab Is patient prescribed a controlled substance at d/c from ED?: No Referrals: Ross Ro DO [Primary Care Provider] - 1-2 days Time of Disposition: 08:49
[2023-02-24 07:43] LABS: Basophils % (A) 1 %; Eosinophils # (A) 0.4 k/uL (0-0.7); Eosinophils % (A) 6 %; HGB 9.9 gm/dL (11.4-16.0); Hypochromasia Slight; Lymphocytes # (A) 0.7 k/uL (1.0-4.8); Lymphocytes % (A) 11 %; MCH 31.1 pg (25.0-35.0); MCHC 32.9 g/dL (31.0-37.0); MCV 94.6 fL (80.0-100.0); Mean Platelet Volume 7.9; Monocytes # (A) 0.4 k/uL (0-1.0); Monocytes % (A) 7 %; Neutrophils # (A) 4.5 k/uL (1.3-7.7); Neutrophils % (A) 73 %; Platelet Count 198 k/uL (150-450); RBC 3.18 m/uL (3.80-5.40); RDW 15.8 % (11.5-15.5); WBC 6.1 k/uL (3.8-10.6)
[2023-02-24 07:55] LABS: ALT 12 U/L (4-34); AST 23 U/L (14-36); African American GFR (CKD) 83 (>60 ml/min/1.73 sqM); Albumin 3.2 g/dL (3.5-5.0); Alkaline Phosphatase 127 U/L (38-126); Anion Gap 10 mmol/L; Blood Urea Nitrogen 14 mg/dL (7-17); Calcium 8.4 mg/dL (8.4-10.2); Carbon Dioxide 25 mmol/L (22-30); Chloride 102 mmol/L (98-107); Glucose 134 mg/dL (74-99); Non-African American GFR(CKD) 72 (>60 ml/min/1.73 sqM); Potassium 3.7 mmol/L (3.5-5.1); Sodium 137 mmol/L (137-145); Total Bilirubin 0.8 mg/dL (0.2-1.3); Total Protein 6.4 g/dL (6.3-8.2)
[2023-02-24 08:17] VITALS: RESP 18; TEMP 98.6
--- NOTE | 2023-02-24 08:24 | XR ---
EXAMINATION TYPE: XR chest 2V DATE OF EXAM: 02/24/2023 COMPARISON: 02/11/2017 HISTORY: 83-year-old female with cough and chest pain TECHNIQUE: AP and lateral views FINDINGS: Heart is borderline in size. Large patient body habitus results in hazy lung densities. No juanjo cons olidation or pleural effusion is seen. IMPRESSION: Borderline heart size. Portable exam further limited by large body habitus. No definite acute process .
[2023-02-24 08:45] LABS: Appearance,Urine Cloudy (Clear); Bacteria,Urine Rare /hpf; Bilirubin,Urine Negative (Negative); Blood,Urine Negative (Negative); Color,Urine Yellow; Glucose,Urine (UA) Negative (Negative); Ketones,Urine Negative (Negative); Leukocyte Esterase,Urine Negative (Negative); Mucus,Urine Rare /hpf; Nitrite,Urine Negative (Negative); PH, Urine 7.5 (5.0-8.0); Protein,Urine 2+ (Negative); RBC,Urine 1 /hpf (0-5); Specific Gravity,Urine 1.019 (1.001-1.035); Squamous Epithelial Cell,Urine 10 /hpf (0-4); Urobilinogen,Urine <2.0 mg/dL (<2.0); WBC,Urine 5 /hpf (0-5)
[2023-02-24 09:57] VITALS: BP 156/66; PULSE 86
== END 2023-02-24 09:35 | disposition home or self-care (01) ==
LOC: EC 07:24
DX: U07.1 COVID-19 (principal); J44.89 Other specified chronic obstructive pulmonary disease; E11.9 Type 2 diabetes mellitus without complications; I10 Essential (primary) hypertension; G47.30 Sleep apnea, unspecified; Z91.040 Latex allergy status; Z86.59 Personal history of other mental and behavioral disorders; Z79.4 Long term (current) use of insulin; Z79.899 Other long term (current) drug therapy; Z79.51 Long term (current) use of inhaled steroids
CPT/HCPCS: 36415; 80053; 85025; 81001; 87636; 71046; 99284; 96374; 96361 ×2; J2765

== ENCOUNTER 2023-03-03 11:39 | Emergency (ER) | payer MEDICARE ==
--- NOTE | 2023-03-03 12:39 | ED ---
Female Urogenital HPI - General Chief complaint: Urogenital Stated complaint: UTI Time Seen by Provider: 03/03/23 12:10 Source: patient, RN notes reviewed Mode of arrival: wheelchair Limitations: no limitations - History of Present Illness Initial comments: Patient is an 83-year-old female presented ER with chief complaint of dysuria. Patient states she has been dealing with dysuria and increased frequency for the past 3 weeks. Patient states that she has previously been on an antibiotic and states after completing the antibiotic course she states her symptoms worsened. Home health care nurse visited patient and prescribe ciprofloxacin. Patient states she took 1 pill and her sugars got very low so she stopped taking medication. Patient is a diabetic and is currently on Humalog and Lantus. Patient also is reporting a foggy sensation due to the infection. Patient is recovering from COVID-19. She denies any fevers, chills, night sweats. - Related Data Home Medications Medication Instructions Recorded Confirmed Metoprolol Tartrate [Lopressor] 100 mg PO BID 02/12/15 02/12/17 Albuterol Sulfate [Proventil Hfa] 2 puff INHALATION RT-Q4H PRN 02/11/17 02/12/17 Arformoterol Tartrate [Brovana] 15 mcg INHALATION RT-BID 02/11/17 02/12/17 Atorvastatin [Lipitor] 20 mg PO HS 02/11/17 02/12/17 Budesonide [Pulmicort] 0.5 mg INHALATION RT-BID 02/11/17 02/12/17 Ferrous Sulfate [Iron (65 MG 325 mg PO DAILY 02/11/17 02/12/17 Elemental)] Furosemide [Lasix] 10 mg PO DAILY 02/11/17 02/12/17 INSULIN LISPRO (humaLOG) [humaLOG] 8 units SQ AC-TID 02/11/17 02/12/17 hydrALAZINE HCL [Apresoline] 10 mg PO BID 02/11/17 02/12/17 lisinopriL [Zestril] 40 mg PO BID 02/11/17 02/12/17 Previous Rx's Medication Instructions Recorded Insulin Glargine [Lantus Vial] 26 unit SQ HS #1 vial 02/14/15 amLODIPine [Norvasc] 5 mg PO DAILY #30 tab 02/15/17 traMADol HCl [Ultram] 50 mg PO TID #30 tab 02/15/17 Nirmatrelvir/Ritonavir [Paxlovid See Rx Instructions .ROUTE 02/24/23 2X150 mg-100 mg (Eua)] .COMPLEX #30 tab Cephalexin [Keflex] 500 mg PO Q6HR 10 Days #40 cap 03/03/23 Fluconazole 150 mg PO ONCE #1 tab 03/03/23 Allergies Allergy/AdvReac Type Severity Reaction Status Date / Time latex Allergy Swelling,hi Verified 03/03/23 13:37 ves Review of Systems ROS Statement: Those systems with pertinent positive or pertinent negative responses have been documented in the HPI. ROS Other: All systems not noted in ROS Statement are negative. 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 djd, urinay incont-wears a brief. History of Any Multi-Drug Resistant Organisms: None Reported Past Surgical History: Section, Hernia Repair, Hysterectomy, Joint Replacement, Orthopedic Surgery Additional Past Surgical History / Comment(s): rossana knee replacements, rossana carpal tunnel sx, x4, hernia near naval, rossana cataracts. Past Anesthesia/Blood Transfusion Reactions: No Reported Reaction Past Psychological History: Anxiety Smoking Status: Never smoker Past Alcohol Use History: Occasional Past Drug Use History: None Reported - Past Family History Mother Family Medical History: Cancer, Diabetes Mellitus, Hypertension Father Family Medical History: Myocardial Infarction ([place]) General Exam Limitations: no limitations General appearance: alert, in no apparent distress Head exam: Present: atraumatic, normocephalic, normal inspection ENT exam: Present: normal exam, normal oropharynx, mucous membranes moist, TM's normal bilaterally Neck exam: Present: normal inspection. Absent: tenderness, meningismus, lymphadenopathy Respiratory exam: Present: normal lung sounds bilaterally. Absent: respiratory distress, wheezes, rales, rhonchi, stridor Cardiovascular Exam: Present: regular rate, normal rhythm, normal heart sounds. Absent: systolic murmur, diastolic murmur, rubs, gallop, clicks GI/Abdominal exam: Present: soft, normal bowel sounds. Absent: distended, tenderness, guarding, rebound, rigid Neurological exam: Present: alert, oriented X3, CN II-XII intact Psychiatric exam: Present: normal affect, normal mood Skin exam: Present: warm, dry, intact, normal color. Absent: rash Course Vital Signs 03/03/23 03/03/23 11:42 13:42 Temperature 98.7 F 98.1 F Pulse Rate 66 72 Respiratory 20 18 Rate Blood Pressure 136/78 O2 Sat by Pulse 96 99 Oximetry Medical Decision Making - Medical Decision Making Was pt. sent in by a medical professional or institution (, PA, GAS ANALYST, urgent care, hospital, or assisted...) When possible be specific @ -No Did you speak to anyone other than the patient for history (EMS, parent, family, police, friend...)? What history was obtained from this source @ -No Did you review nursing and triage notes (agree or disagree)? Why? @ -I reviewed and agree with nursing and triage notes Were old charts reviewed (outside hosp., previous admission, EMS record, old EKG, old radiological studies, urgent care reports/EKG's, assisted records)? Report findings @ -No old charts were reviewed Differential Diagnosis (chest pain, altered mental status, abdominal pain women, abdominal pain men, vaginal bleeding, weakness, fever, dyspnea, syncope, headache, dizziness, GI bleed, back pain, seizure, CVA, palpatations, mental health, musculoskeletal)? @ -Differential Abdominal Pain Women: Appendicitis, Cholecystitis, diverticulosis, ischemic bowel, pancreatitis, hepatitis, UTI, gastroenteritis, AAA, incarcerated hernia, bowel obstruction, constipation, inflammatory bowel, hepatitis, peptic ulcer disease, splenic infarction, perforated viscus, vulvitis, ovarian torsion, PID, kidney stone, placenta abruption, this is not meant to be an all-inclusive list EKG interpreted by me (3pts min.). @ -None X-rays interpreted by me (1pt min.). @ -None done CT interpreted by me (1pt min.). @ -None done U/S interpreted by me (1pt. min.). @ -None done What testing was considered but not performed or refused? (CT, X-rays, U/S, labs)? Why? @ -None What meds were considered but not given or refused? Why? @ -None Did you discuss the management of the patient with other professionals (professionals i.e. , PA, GAS ANALYST, lab, RT, psych nurse, social staff worker, safety net maker, teacher, fisheries enforcement officer, test case developer)? Give summary @ -No Was smoking cessation discussed for >3mins.? @ -No Was critical care preformed (if so, how long)? @ -No Were there social determinants of health that impacted care today? How? (Homelessness, low income, unemployed, alcoholism, drug addiction, alexander sportation, low edu. Level, literacy, decrease access to med. care, retirement, rehab)? @ -No Was there de-escalation of care discussed even if they declined (Discuss DNR or withdrawal of care, Hospice)? DNR status @ -No What co-morbidities impacted this encounter? (DM, HTN, Smoking, COPD, CAD, Cancer, CVA, ARF, Chemo, Hep., AIDS, mental health diagnosis, sleep apnea, morbid obesity)? @ -Diabetes mellitus, morbid obesity Was patient admitted / discharged? Hospital course, mention meds given and route, prescriptions, significant lab abnormalities, going to OR and other pertinent info. @ -Discharge. Patient presented ER with chief complaint dysuria. Vitals stable. Urinalysis showing signs of infection. Due to patient's history and concern of recurrent UTIs. Keflex was prescribed. Patient also was prescribed fluconazole for yeast infection as she has been stating she is itchy in her genital region. I educated patient on importance of completing fuill course on antibiotics. Patient was in no signs of acute distress. Return parameters were discussed. I advised patient to follow-up with PCP. Patient will be discharged in stable condition. Patient in agreement with care plan. Undiagnosed new problem with uncertain prognosis? @ -No Drug Therapy requiring intensive monitoring for toxicity (Heparin, Nitro, Insulin, Cardizem)? @ -No Were any procedures done? @ -No Diagnosis/symptom? @ -Urinary tract infection Acute, or Chronic, or Acute on Chronic? @ -Acute Uncomplicated (without systemic symptoms) or Complicated (systemic symptoms)? @ -Uncomplicated Side effects of treatment? @ -No Exacerbation, Progression, or Severe Exacerbation? @ -No Poses a threat to life or bodily function? How? (Chest pain, USA, NV, pneumonia, PE, COPD, DKA, ARF, appy, cholecystitis, CVA, Diverticulitis, Homicidal, Suicidal, threat to staff... and all critical care pts) @ -No - Lab Data Lab Results 03/03/23 Range/Units 12:14 Urine Color Yellow Urine Appearance Cloudy H (Clear) Urine pH 6.0 (5.0-8.0) Ur Specific [place] 1.019 (1.001-1.035) Urine Protein 2+ H (Negative) Urine Glucose (UA) Negative (Negative) Urine Ketones Negative (Negative) Urine Blood Trace H (Negative) Urine Nitrite Negative (Negative) Urine Bilirubin Negative (Negative) Urine Urobilinogen <2.0 (<2.0) mg/dL Ur Leukocyte Esterase Moderate H (Negative) Urine RBC 2 (0-5) /hpf Urine WBC 67 H (0-5) /hpf Ur Squamous Epith Cells 10 H (0-4) /hpf Hyaline Casts 3 H (0-2) /lpf Urine Mucus Rare H (None) /hpf Disposition Clinical Impression: Urinary tract infection Disposition: HOME SELF-CARE Condition: Stable Instructions (If sedation given, give patient instructions): Urinary Tract Infection in Women (ED) Additional Instructions: Please complete full course of antibiotics. Please follow-up with primary care physician. Return to ER for any new or worsening symptoms. Prescriptions: Fluconazole 150 mg PO ONCE #1 tab Cephalexin [Keflex] 500 mg PO Q6HR 10 Days #40 cap Is patient prescribed a controlled substance at d/c from ED?: No Referrals: Ross Ro DO [Primary Care Provider] - 1-2 days Time of Disposition: 13:36
[2023-03-03 12:59] LABS: Appearance,Urine Cloudy (Clear); Bilirubin,Urine Negative (Negative); Blood,Urine Trace (Negative); Color,Urine Yellow; Glucose,Urine (UA) Negative (Negative); Hyaline Casts,Urine 3 /lpf (0-2); Ketones,Urine Negative (Negative); Leukocyte Esterase,Urine Moderate (Negative); Mucus,Urine Rare /hpf; Nitrite,Urine Negative (Negative); Protein,Urine 2+ (Negative); RBC,Urine 2 /hpf (0-5); Specific Gravity,Urine 1.019 (1.001-1.035); Squamous Epithelial Cell,Urine 10 /hpf (0-4); Urobilinogen,Urine <2.0 mg/dL (<2.0); WBC,Urine 67 /hpf (0-5)
[2023-03-03 14:00] VITALS: BP 136/78; PULSE 72; RESP 18; TEMP 98.1
== END 2023-03-03 13:44 | disposition home or self-care (01) ==
LOC: EC 11:39
DX: N39.0 Urinary tract infection, site not specified (principal); E11.36 Type 2 diabetes mellitus with diabetic cataract; J44.89 Other specified chronic obstructive pulmonary disease; I10 Essential (primary) hypertension; F41.9 Anxiety disorder, unspecified; Z79.4 Long term (current) use of insulin; Z79.899 Other long term (current) drug therapy; Z91.040 Latex allergy status; Z86.16 Personal history of COVID-19
CPT/HCPCS: 81001; 87086; 99283

== ENCOUNTER 2023-03-07 09:12 | Emergency (ER) | payer MEDICARE ==
[2023-03-07] MEDS ORDERED: SODIUM CHLORIDE 0.9% 1,000 ML IV STA (09:22)
[2023-03-07] MEDS ORDERED: ONDANSETRON 4 MG/2 ML VIAL IVP STA (09:23)
[2023-03-07] MEDS ORDERED: KETOROLAC 15 MG/ML 1 ML VIAL IVP STA (09:23)
[2023-03-07 09:41] VITALS: RESP 18; TEMP 98.7
[2023-03-07 10:02] LABS: Basophils % (A) 1 %; Eosinophils # (A) 0.6 k/uL (0-0.7); Eosinophils % (A) 10 %; HCT 35.6 % (34.0-46.0); HGB 11.4 gm/dL (11.4-16.0); Hypochromasia Slight; Lymphocytes # (A) 1.4 k/uL (1.0-4.8); Lymphocytes % (A) 23 %; MCH 30.5 pg (25.0-35.0); MCHC 31.9 g/dL (31.0-37.0); MCV 95.6 fL (80.0-100.0); Mean Platelet Volume 8.5; Monocytes # (A) 0.3 k/uL (0-1.0); Monocytes % (A) 5 %; Neutrophils # (A) 3.5 k/uL (1.3-7.7); Neutrophils % (A) 60 %; Platelet Count 260 k/uL (150-450); RBC 3.73 m/uL (3.80-5.40); RDW 15.8 % (11.5-15.5); WBC 5.9 k/uL (3.8-10.6)
--- NOTE | 2023-03-07 10:05 | ED ---
General Adult HPI - General Chief complaint: Dizziness Stated complaint: dizziness Time Seen by Provider: 03/07/23 09:16 Source: patient, EMS, RN notes reviewed Mode of arrival: EMS Limitations: no limitations - History of Present Illness Initial comments: 83-year-old female sent emergency Department with multiple complaints. Patient states that he has been sick recently with Covid 19, UTI. States that she just feels so dehydrated states she feels weak so complaining of body aches. Patient denies any chest pain or significant shortness of breath. Patient denies any dysuria currently patient denies any flank pain no focal weakness. - Related Data Home Medications Medication Instructions Recorded Confirmed Metoprolol Tartrate [Lopressor] 100 mg PO BID 02/12/15 02/12/17 Albuterol Sulfate [Proventil Hfa] 2 puff INHALATION RT-Q4H PRN 02/11/17 02/12/17 Arformoterol Tartrate [Brovana] 15 mcg INHALATION RT-BID 02/11/17 02/12/17 Atorvastatin [Lipitor] 20 mg PO HS 02/11/17 02/12/17 Budesonide [Pulmicort] 0.5 mg INHALATION RT-BID 02/11/17 02/12/17 Ferrous Sulfate [Iron (65 MG 325 mg PO DAILY 02/11/17 02/12/17 Elemental)] Furosemide [Lasix] 10 mg PO DAILY 02/11/17 02/12/17 INSULIN LISPRO (humaLOG) [humaLOG] 8 units SQ AC-TID 02/11/17 02/12/17 hydrALAZINE HCL [Apresoline] 10 mg PO BID 02/11/17 02/12/17 lisinopriL [Zestril] 40 mg PO BID 02/11/17 02/12/17 Previous Rx's Medication Instructions Recorded Insulin Glargine [Lantus Vial] 26 unit SQ HS #1 vial 02/14/15 amLODIPine [Norvasc] 5 mg PO DAILY #30 tab 02/15/17 traMADol HCl [Ultram] 50 mg PO TID #30 tab 02/15/17 Nirmatrelvir/Ritonavir [Paxlovid See Rx Instructions .ROUTE 02/24/23 2X150 mg-100 mg (Eua)] .COMPLEX #30 tab Cephalexin [Keflex] 500 mg PO Q6HR 10 Days #40 cap 03/03/23 Fluconazole 150 mg PO ONCE #1 tab 03/03/23 Allergies Allergy/AdvReac Type Severity Reaction Status Date / Time latex Allergy Swelling,hi Verified 03/07/23 09:20 ves Review of Systems ROS Statement: Those systems with pertinent positive or pertinent negative responses have been documented in the HPI. ROS Other: All systems not noted in ROS Statement are negative. 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 djd, urinay incont-wears a brief. History of Any Multi-Drug Resistant Organisms: None Reported Past Surgical History: Section, Hernia Repair, Hysterectomy, Joint Replacement, Orthopedic Surgery Additional Past Surgical History / Comment(s): rossana knee replacements, rossana carpal tunnel sx, x4, hernia near naval, rossana cataracts. Past Anesthesia/Blood Transfusion Reactions: No Reported Reaction Past Psychological History: Anxiety Smoking Status: Never smoker Past Alcohol Use History: Occasional Past Drug Use History: None Reported - Past Family History Mother Family Medical History: Cancer, Diabetes Mellitus, Hypertension Father Family Medical History: Myocardial Infarction ([place]) General Exam Limitations: no limitations General appearance: alert, in no apparent distress Head exam: Present: atraumatic, normocephalic, normal inspection Eye exam: Present: normal appearance, PERRL, EOMI. Absent: scleral icterus, conjunctival injection, periorbital swelling Neck exam: Present: normal inspection, full ROM. Absent: tenderness, meningismus, lymphadenopathy Respiratory exam: Present: normal lung sounds bilaterally. Absent: respiratory distress, wheezes, rales, rhonchi, stridor Cardiovascular Exam: Present: regular rate, normal rhythm, normal heart sounds. Absent: systolic murmur, diastolic murmur, rubs, gallop, clicks GI/Abdominal exam: Present: soft, normal bowel sounds. Absent: distended, tenderness, guarding, rebound, rigid Back exam: Present: full ROM. Absent: tenderness Neurological exam: Present: alert, oriented X3, reflexes normal. Absent: motor sensory deficit Course Vital Signs 03/07/23 03/07/23 03/07/23 09:18 10:28 12:19 Temperature 98.7 F Pulse Rate 75 67 57 L Respiratory 18 18 18 Rate Blood Pressure 175/64 154/58 156/61 O2 Sat by Pulse 99 100 100 Oximetry EKG Findings - EKG Comments: EKG Findings:: EKG performed at 19:30 sinus rhythm rate of 75 [place] 188 QRS 125 QT/ QTC 385/4:15 - EKG Results: EKG: interpreted by EMIGDIO Medical Decision Making - Medical Decision Making Was pt. sent in by a medical professional or institution (, PA, MASTER PLANNER, urgent care, hospital, or longterm...) When possible be specific @ -No Did you speak to anyone other than the patient for history (EMS, parent, family, police, friend...)? What history was obtained from this source @ -No Did you review nursing and triage notes (agree or disagree)? Why? @ -I reviewed and agree with nursing and triage notes Were old charts reviewed (outside hosp., previous admission, EMS record, old EKG, old radiological studies, urgent care reports/EKG's, longterm records)? Report findings @ -No old charts were reviewed Differential Diagnosis (chest pain, altered mental status, abdominal pain women, abdominal pain men, vaginal bleeding, weakness, fever, dyspnea, syncope, headache, dizziness, GI bleed, back pain, seizure, CVA, palpatations, mental health, musculoskeletal)? @ -nDifferential Weakness: Hypoglycemia, shock, sepsis, hyponatremia, anemia, infection, OR, ETOH, adverse medicine reaction, overdose, stroke, this is not meant to be an all-inclusive list.e EKG interpreted by me (3pts min.). @ -As above X-rays interpreted by me (1pt min.). @ -Chest x-ray shows no acute cardio pulmonary process X-ray KUB shows moderate stool no obstruction CT interpreted by me (1pt min.). @ -None done U/S interpreted by me (1pt. min.). @ -None done What testing was considered but not performed or refused? (CT, X-rays, U/S, labs)? Why? @ -None What meds were considered but not given or refused? Why? @ -None Did you discuss the management of the patient with other professionals (professionals i.e. , PA, MASTER PLANNER, lab, RT, psych nurse, social work therapist, junior software engineer, teacher, adult probation officer, case worker)? Give summary @ -No Was smoking cessation discussed for >3mins.? @ -No Was critical care preformed (if so, how long)? @ -No Were there social determinants of health that impacted care today? How? (Homelessness, low income, unemployed, alcoholism, drug addiction, transportation, low edu. Level, literacy, decrease access to med. care, penitentiary, rehab)? @ -No Was there de-escalation of care discussed even if they declined (Discuss DNR or withdrawal of care, Hospice)? DNR status @ -No What co-morbidities impacted this encounter? (DM, HTN, Smoking, COPD, CAD, Cancer, CVA, ARF, Chemo, Hep., AIDS, mental health diagnosis, sleep apnea, morbid obesity)? @ -None Was patient admitted / discharged? Hospital course, mention meds given and route, prescriptions, significant lab abnormalities, going to OR and other pertinent info. @ -Discharge presented for generalized weakness. Patient had Lab studies x- rays urinalysis is no acute abnormality. Patient we discharged in stable condition return parameters discussed. Undiagnosed new problem with uncertain prognosis? @ -No Drug Therapy requiring intensive monitoring for toxicity (Heparin, Nitro, Insulin, Cardizem)? @ -No Were any procedures done? @ -No Diagnosis/symptom? @ -Fatigue Acute, or Chronic, or Acute on Chronic? @ -[Acute Uncomplicated (without systemic symptoms) or Complicated (systemic symptoms)? @ -[Uncomplicated Side effects of treatment? @ -No Exacerbation, Progression, or Severe Exacerbation? @ -No Poses a threat to life or bodily function? How? (Chest pain, USA, [place], pneumonia, PE, COPD, DKA, ARF, appy, cholecystitis, CVA, Diverticulitis, Homicidal, Suicidal, threat to staff... and all critical care pts) @ -No - Lab Data Result diagrams: 03/07/23 09:39 03/07/23 09:39 Lab Results 03/07/23 03/07/23 03/07/23 Range/Units 09:39 09:39 09:39 WBC 5.9 (3.8-10.6) k/uL RBC 3.73 L (3.80-5.40) m/uL Hgb 11.4 (11.4-16.0) gm/dL Hct 35.6 (34.0-46.0) % MCV 95.6 (80.0-100.0) fL MCH 30.5 (25.0-35.0) pg MCHC 31.9 (31.0-37.0) g/dL RDW 15.8 H (11.5-15.5) % Plt Count 260 (150-450) k/uL MPV 8.5 Neutrophils % 60 % Lymphocytes % 23 % Monocytes % 5 % Eosinophils % 10 % Basophils % 1 % Neutrophils # 3.5 (1.3-7.7) k/uL Lymphocytes # 1.4 (1.0-4.8) k/uL Monocytes # 0.3 (0-1.0) k/uL Eosinophils # 0.6 (0-0.7) k/uL Basophils # 0.0 (0-0.2) k/uL Hypochromasia Slight Sodium 139 (137-145) mmol/L Potassium 4.7 (3.5-5.1) mmol/L Chloride 105 (98-107) mmol/L Carbon Dioxide 27 (22-30) mmol/L Anion Gap 7 mmol/L BUN 19 H (7-17) mg/dL Creatinine 0.92 (0.52-1.04) mg/dL Est GFR (CKD-EPI)AfAm 68 (>60 ml/min/1.73 sqM) Est GFR (CKD-EPI)NonAf 59 (>60 ml/min/1.73 sqM) Glucose 152 H (74-99) mg/dL Calcium 9.6 (8.4-10.2) mg/dL Total Bilirubin 0.8 (0.2-1.3) mg/dL AST 35 (14-36) U/L ALT 30 (4-34) U/L Alkaline Phosphatase 129 H (38-126) U/L Troponin I <0.012 (0.000-0.034) ng/mL Total Protein 7.8 (6.3-8.2) g/dL Albumin 4.0 (3.5-5.0) g/dL Amylase 54 (30-110) U/L Lipase 27 (23-300) U/L Urine Color Urine Appearance (Clear) Urine pH (5.0-8.0) Ur Specific [place] (1.001-1.035) Urine Protein (Negative) Urine Glucose (UA) (Negative) Urine Ketones (Negative) Urine Blood (Negative) Urine Nitrite (Negative) Urine Bilirubin (Negative) Urine Urobilinogen (<2.0) mg/dL Ur Leukocyte Esterase (Negative) Urine RBC (0-5) /hpf Urine WBC (0-5) /hpf Ur Squamous Epith Cells (0-4) /hpf Urine Mucus (None) /hpf 03/07/23 Range/Units 09:39 WBC (3.8-10.6) k/uL RBC (3.80-5.40) m/uL Hgb (11.4-16.0) gm/dL Hct (34.0-46.0) % MCV (80.0-100.0) fL MCH (25.0-35.0) pg MCHC (31.0-37.0) g/dL RDW (11.5-15.5) % Plt Count (150-450) k/uL MPV Neutrophils % % Lymphocytes % % Monocytes % % Eosinophils % % Basophils % % Neutrophils # (1.3-7.7) k/uL Lymphocytes # (1.0-4.8) k/uL Monocytes # (0-1.0) k/uL Eosinophils # (0-0.7) k/uL Basophils # (0-0.2) k/uL Hypochromasia Sodium (137-145) mmol/L Potassium (3.5-5.1) mmol/L Chloride (98-107) mmol/L Carbon Dioxide (22-30) mmol/L Anion Gap mmol/L BUN (7-17) mg/dL Creatinine (0.52-1.04) mg/dL Est GFR (CKD-EPI)AfAm (>60 ml/min/1.73 sqM) Est GFR (CKD-EPI)NonAf (>60 ml/min/1.73 sqM) Glucose (74-99) mg/dL Calcium (8.4-10.2) mg/dL Total Bilirubin (0.2-1.3) mg/dL AST (14-36) U/L ALT (4-34) U/L Alkaline Phosphatase (38-126) U/L Troponin I (0.000-0.034) ng/mL Total Protein (6.3-8.2) g/dL Albumin (3.5-5.0) g/dL Amylase (30-110) U/L Lipase (23-300) U/L Urine Color Colorless Urine Appearance Clear (Clear) Urine pH 6.5 (5.0-8.0) Ur Specific [place] 1.008 (1.001-1.035) Urine Protein 1+ H (Negative) Urine Glucose (UA) Negative (Negative) Urine Ketones Negative (Negative) Urine Blood Negative (Negative) Urine Nitrite Negative (Negative) Urine Bilirubin Negative (Negative) Urine Urobilinogen <2.0 (<2.0) mg/dL Ur Leukocyte Esterase Negative (Negative) Urine RBC 1 (0-5) /hpf Urine WBC <1 (0-5) /hpf Ur Squamous Epith Cells <1 (0-4) /hpf Urine Mucus Rare H (None) /hpf Disposition Clinical Impression: Fatigue Disposition: HOME SELF-CARE Condition: Stable Instructions (If sedation given, give patient instructions): Fatigue (ED) Additional Instructions: Please return to the Emergency Department if symptoms worsen or any other concerns. Is patient prescribed a controlled substance at d/c from ED?: No Referrals: Ross Ro DO [Primary Care Provider] - 1-2 days Time of Disposition: 12:06
[2023-03-07 10:12] LABS: ALT 30 U/L (4-34); AST 35 U/L (14-36); African American GFR (CKD) 68 (>60 ml/min/1.73 sqM); Alkaline Phosphatase 129 U/L (38-126); Amylase 54 U/L (30-110); Anion Gap 7 mmol/L; Blood Urea Nitrogen 19 mg/dL (7-17); Calcium 9.6 mg/dL (8.4-10.2); Carbon Dioxide 27 mmol/L (22-30); Chloride 105 mmol/L (98-107); Glucose 152 mg/dL (74-99); Lipase 27 U/L (23-300); Non-African American GFR(CKD) 59 (>60 ml/min/1.73 sqM); Sodium 139 mmol/L (137-145); Total Bilirubin 0.8 mg/dL (0.2-1.3); Total Protein 7.8 g/dL (6.3-8.2)
[2023-03-07 10:13] LABS: Appearance,Urine Clear (Clear); Bilirubin,Urine Negative (Negative); Blood,Urine Negative (Negative); Color,Urine Colorless; Glucose,Urine (UA) Negative (Negative); Ketones,Urine Negative (Negative); Leukocyte Esterase,Urine Negative (Negative); Mucus,Urine Rare /hpf; Nitrite,Urine Negative (Negative); PH, Urine 6.5 (5.0-8.0); Protein,Urine 1+ (Negative); RBC,Urine 1 /hpf (0-5); Specific Gravity,Urine 1.008 (1.001-1.035); Squamous Epithelial Cell,Urine <1 /hpf (0-4); Urobilinogen,Urine <2.0 mg/dL (<2.0); WBC,Urine <1 /hpf (0-5)
[2023-03-07 10:14] LABS: Potassium 4.7 mmol/L (3.5-5.1)
--- NOTE | 2023-03-07 11:34 | XR ---
EXAMINATION TYPE: XR chest 2V DATE OF EXAM: 03/07/2023 COMPARISON: Chest x-ray February 24, 2023 HISTORY: Weakness TECHNIQUE: Frontal and lateral views of the chest are obtained. FINDINGS: There is elevated and eventrated anterior aspect of the right hemidiaphragm redemonstrated . There is no suspicious new peripheral focal air space opacity, pleural effusion, or pneumothorax se en. The cardiac silhouette size is stable and within normal limits. The osseous structures are int act. IMPRESSION: No acute process. No significant change from most recent prior.
--- NOTE | 2023-03-07 11:52 | XR ---
EXAMINATION TYPE: XR KUB DATE OF EXAM: 03/07/2023 Comparison: None Clinical History: 83-year-old female pain Findings: Large patient body habitus. Scattered moderate stool. Air extends distally to the rectum. Vascular ca lcifications in the pelvis. Moderate degenerative change of both hips. Degenerative change lower lumb ar spine. No dilated small bowel. Supine imaging limited for assessment of free air. Small pelvic phl ebolith. Impression: Scattered moderate stool. Nonobstructive bowel gas pattern.
[2023-03-07 12:32] VITALS: BP 156/61; PULSE 57
== END 2023-03-07 12:44 | disposition home or self-care (01) ==
LOC: EC 09:12
DX: R53.83 Other fatigue (principal); I99.8 Other disorder of circulatory system; J44.89 Other specified chronic obstructive pulmonary disease; E11.9 Type 2 diabetes mellitus without complications; I10 Essential (primary) hypertension; G47.30 Sleep apnea, unspecified; Z86.59 Personal history of other mental and behavioral disorders; Z91.040 Latex allergy status; Z79.4 Long term (current) use of insulin; Z79.51 Long term (current) use of inhaled steroids; Z79.899 Other long term (current) drug therapy
CPT/HCPCS: 36415; 93005; 80053; 82150; 83690; 84484; 85025; 81001; 71046; 74018; 99285; 96374; 96375; 96361; J2405; J1885

== ENCOUNTER 2023-07-31 08:23 | Emergency (ER) | payer MEDICARE ==
[2023-07-31 08:27] VITALS: RESP 18; TEMP 97.9
--- NOTE | 2023-07-31 09:28 | XR ---
EXAMINATION TYPE: XR chest 2V DATE OF EXAM: 07/31/2023 COMPARISON: 03/07/2013 HISTORY: Shortness of breath TECHNIQUE: Frontal and lateral views of the chest are obtained. FINDINGS: Scattered senescent parenchymal changes noted. Hyperinflation compatible with COPD. No evidence for infiltrate. No evidence for atelectasis. Heart size is stable. Mediastinal structures are stable and grossly unremarkable. No evidence for hilar prominence. Degenerative changes dorsal spine. IMPRESSION: 1. No evidence for acute pulmonary disease.
--- NOTE | 2023-07-31 10:17 | ED ---
SOB HPI - General Source: patient, RN notes reviewed Mode of arrival: wheelchair Limitations: no limitations <Trina Bronson - Last Filed: 07/31/23 10:15> - General Source: patient, RN notes reviewed, old records reviewed <Tacho Yadav - Last Filed: 07/31/23 15:22> - General Chief Complaint: Shortness of Breath Stated Complaint: SOB Time Seen by Provider: 07/31/23 10:16 - History of Present Illness Initial Comments: Quick note: 83-year-old female presented to the ER with a chief complaint of shortness of breath. She states her symptoms started yesterday and is endorsing wheezing and a cough. Patient is currently on antibiotics for UTI. She also was endorsing fevers and chills. Patient does report an increase in peripheral edema and a past medical history significant of CHF. She also reports mild chest pain. (Trina Bronson) Patient is an 83-year-old female who presents emergency department complaining of shortness of breath. Originally seen as a quick note. I evaluated her when she was placed in the hallway. She is endorsing wheezing as well as a mild nonproductive cough of clear mucus. Is currently on antibiotics for UTI. Has a history of CHF but denies any significant worsening lower extremity edema. States it comes and goes based on the day and today it is not very severe. Denies any chest pain but does endorse some chest discomfort when coughing. Denies any other acute complaints at this time. Presents for further evaluation. (Tacho Yadav) - Related Data Home Medications Medication Instructions Recorded Confirmed Metoprolol Tartrate [Lopressor] 100 mg PO BID 02/12/15 07/31/23 Albuterol Sulfate [Proventil Hfa] 2 puff INHALATION RT-Q4H PRN 02/11/17 07/31/23 Atorvastatin [Lipitor] 20 mg PO HS 02/11/17 07/31/23 hydrALAZINE HCL [Apresoline] 10 mg PO BID 02/11/17 07/31/23 Amoxic-Pot Clav 875-125Mg 1 tab PO BID 07/31/23 07/31/23 [Augmentin 875-125] Cholecalciferol [Vitamin D3 (25 25 mcg PO DAILY 07/31/23 07/31/23 Mcg = 1000 Iu)] Fluticasone Nasal Burt [Flonase 1 spray EA NOSTRIL BID 07/31/23 07/31/23 Nasal Burt] Furosemide [Lasix] 20 mg PO Q48H 07/31/23 07/31/23 Insulin Glargine,Hum.rec.anlog 26 units SQ HS 07/31/23 07/31/23 [Lantus Solostar Pen] Insulin Lispro [humaLOG Kwikpen] 4 - 8 unit SQ AC-TID 07/31/23 07/31/23 Meclizine [Antivert] 25 mg PO TID PRN 07/31/23 07/31/23 Multivit-Min/Iron/Folic/Lutein 1 tab PO DAILY 07/31/23 07/31/23 [Centrum Silver Women Tablet] lisinopriL [Zestril] 40 mg PO BID 07/31/23 07/31/23 traMADol HCl [Ultram] 50 mg PO Q6H PRN 07/31/23 07/31/23 Previous Rx's Medication Instructions Recorded predniSONE [Deltasone] 40 mg PO DAILY 5 Days #10 tab 07/31/23 Allergies Allergy/AdvReac Type Severity Reaction Status Date / Time latex Allergy Swelling,hi Verified 07/31/23 08:26 ves Review of Systems ROS Other: All systems not noted in ROS Statement are negative. <Trina Bronson - Last Filed: 07/31/23 10:15> ROS Other: All systems not noted in ROS Statement are negative. <Tacho Yadav - Last Filed: 07/31/23 15:22> ROS Statement: Those systems with pertinent positive or pertinent negative responses have been documented in the HPI. Review of Systems: CONST: Denies fever EYES: Denies blurry vision ENT: Denies nasal congestion C/V: Denies Chest pain RESP: Endorses wheezing, cough GI: Denies abdominal pain : Denies dysuria SKIN: Denies rash. MSK: Denies joint pain. 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 djd, urinay incont-wears a brief. History of Any Multi-Drug Resistant Organisms: None Reported Past Surgical History: Section, Hernia Repair, Hysterectomy, Joint Replacement, Orthopedic Surgery Additional Past Surgical History / Comment(s): rossana knee replacements, rossana carpal tunnel sx, x4, hernia near naval, rossana cataracts. Past Anesthesia/Blood Transfusion Reactions: No Reported Reaction Past Psychological History: Anxiety Smoking Status: Never smoker Past Alcohol Use History: Occasional Past Drug Use History: None Reported - Past Family History Mother Family Medical History: Cancer, Diabetes Mellitus, Hypertension Father Family Medical History: Myocardial Infarction (PR) <Trina Bronson - Last Filed: 07/31/23 10:15> General Exam Limitations: no limitations <Trina Bronson - Last Filed: 07/31/23 10:15> <Tacho Yadav - Last Filed: 07/31/23 15:22> - General Exam Comments Initial Comments: Visual Physical Exam Vital signs reviewed General: Well-appearing, nontoxic, no acute distress. Head: Normocephalic, atraumatic Eyes: PERRLA, EOMI ENT: Airway patent Chest: Nonlabored breathing Skin: No visual rash, normal skin tone Neuro: Alert and oriented 3 Musculoskeletal: No gross abnormalities (Trina Bronson) General: Appears in no acute distress. HEAD: Normal with no signs of head trauma. EYES: EOMI ENT: Hearing grossly intact, normal oropharynx. RESPIRATORY: Bilateral end expiratory wheezing. No hypoxia. No significant increased work of breathing. C/V: Regular rate and rhythm. S1 and S2 auscultated, minimal lower extremity pitting edema, peripheral pulses 2+ and intact throughout ABD: Abd is soft, nontender, nondistended EXT: Normal range of motion, no obvious deformity SKIN: No rashes or lesions observed on exposed skin. NEURO: Alert and oriented x 4. (Tacho Yadav) Course Vital Signs 07/31/23 07/31/23 07/31/23 08:24 12:12 12:31 Temperature 97.9 F Pulse Rate 60 64 62 Respiratory 18 Rate Blood Pressure 165/64 O2 Sat by Pulse 100 Oximetry 07/31/23 13:57 Temperature Pulse Rate 64 Respiratory 18 Rate Blood Pressure 188/61 O2 Sat by Pulse 94 L Oximetry Medical Decision Making <Trina Bronson - Last Filed: 07/31/23 10:15> - Lab Data Result diagrams: 07/31/23 10:18 07/31/23 10:18 - EKG Data -: EKG Interpreted by Me <Tacho Yadav - Last Filed: 07/31/23 15:22> - Medical Decision Making I performed the quick note portion of this chart. Electronically signed by Trina Bronson PA-C (Trina Bronson) Was pt. sent in by a medical professional or institution ([facility], PLUGGER WORKER, urgent care, hospital, or prison...) When possible be specific @ -No Did you speak to anyone other than the patient for history (EMS, parent, family, police, friend...)? What history was obtained from this source @ -No Did you review nursing and triage notes (agree or disagree)? Why? @ -I reviewed and agree with nursing and triage notes Were old charts reviewed (outside hosp., previous admission, EMS record, old EKG, old radiological studies, urgent care reports/EKG's, prison records)? Report findings @ -No old charts were reviewed Differential Diagnosis (chest pain, altered mental status, abdominal pain women, abdominal pain men, vaginal bleeding, weakness, fever, dyspnea, syncope, headache, dizziness, GI bleed, back pain, seizure, CVA, palpatations, mental health, musculoskeletal)? @ -Differential Dyspnea: Coronary syndrome, arrhythmia, tamponade, asthma, COPD, pulmonary embolism, pneumonia, pneumothorax, pulmonary effusion, anaphylaxis, diabetic ketoacidosis, flailed chest, pulmonary contusion, diaphragmatic rupture, anemia, neuromuscular, this is not meant to be an all-inclusive list. EKG interpreted by me (3pts min.). @ -As above X-rays interpreted by me (1pt min.). @ -Chest x-ray reveals no obvious acute cardiopulmonary process. CT interpreted by me (1pt min.). @ -None done U/S interpreted by me (1pt. min.). @ -None done What testing was considered but not performed or refused? (CT, X-rays, U/S, labs)? Why? @ -None What meds were considered but not given or refused? Why? @ -None Did you discuss the management of the patient with other professionals (professionals i.e. , PA, PLUGGER WORKER, lab, RT, psych nurse, social security assessor, retoucher, teacher, corporate ethics officer, registered nurse hh case manager)? Give summary @ -No Was smoking cessation discussed for >3mins.? @ -No Was critical care preformed (if so, how long)? @ -No Were there social determinants of health that impacted care today? How? (Homelessness, low income, unemployed, alcoholism, drug addiction, transportation, low edu. Level, literacy, decrease access to med. care, assisted, rehab)? @ -No Was there de-escalation of care discussed even if they declined (Discuss DNR or withdrawal of care, Hospice)? DNR status @ -No What co-morbidities impacted this encounter? (DM, HTN, Smoking, COPD, CAD, Cancer, CVA, ARF, Chemo, Hep., AIDS, mental health diagnosis, sleep apnea, morbid obesity)? @ -Asthma Was patient admitted / discharged? Hospital course, mention meds given and route, prescriptions, significant lab abnormalities, going to OR and other pertinent info. @ -Based on patient's presentation and physical exam, presents with what appear s to be asthma versus tracheobronchitis. Possibly pneumonia. Has been having a productive cough with increased wheezing and shortness of breath. Does have a history of CHF but clinically this seems more like asthma with the wheezing. He is resting comfortably at this time. She has been using her inhalers at home without effect. Presents for further evaluation. Laboratory studies unremarkable. Chest x-ray unremarkable. EKG unremarkable. On reevaluation, I discussed results with patient. Following breathing treatments as well as IV steroids, patient is feeling improved. I believe it is safe for the patient be discharged home at this time. Patient was in agreement this plan. I will provide the patient with a prescription for prednisone. I instructed the patient to follow up with their PCP in the next 1-3 days.. I explained that the patient should return to the emergency department if they experience any worsening symptoms. Strict return precautions were discussed with the patient. The patient expressed understanding of these instructions. I answered all questions that the patient had. The patient was discharged home in good condition with their prescriptions and follow up information. Undiagnosed new problem with uncertain prognosis? @ -No Drug Therapy requiring intensive monitoring for toxicity (Heparin, Nitro, Insulin, Cardizem)? @ -No Were any procedures done? @ -No Diagnosis/symptom? @ -Asthma Acute, or Chronic, or Acute on Chronic? @ -Acute Uncomplicated (without systemic symptoms) or Complicated (systemic symptoms)? @ -Uncomplicated Side effects of treatment? @ -No Exacerbation, Progression, or Severe Exacerbation? @ -No Poses a threat to life or bodily function? How? (Chest pain, [place], PR, pneumonia, PE, COPD, DKA, ARF, appy, cholecystitis, CVA, Diverticulitis, Homicidal, Suicidal, threat to staff... and all critical care pts) @ -Unlikely (Tacho Yadav) - Lab Data Lab Results 07/31/23 07/31/23 07/31/23 Range/Units 09:59 10:18 10:18 WBC 6.5 (3.8-10.6) k/uL RBC 3.44 L (3.80-5.40) m/uL Hgb 10.1 L (11.4-16.0) gm/dL Hct 33.5 L (34.0-46.0) % MCV 97.2 (80.0-100.0) fL MCH 29.4 (25.0-35.0) pg MCHC 30.2 L (31.0-37.0) g/dL RDW 15.5 (11.5-15.5) % Plt Count 198 (150-450) k/uL MPV 9.9 Neutrophils % 67 % Lymphocytes % 17 % Monocytes % 6 % Eosinophils % 9 % Basophils % 1 % Neutrophils # 4.4 (1.3-7.7) k/uL Lymphocytes # 1.1 (1.0-4.8) k/uL Monocytes # 0.4 (0-1.0) k/uL Eosinophils # 0.6 (0-0.7) k/uL Basophils # 0.0 (0-0.2) k/uL Hypochromasia Moderate PT (10.0-12.5) sec INR (<1.2) APTT (22.0-30.0) sec Sodium 137 (137-145) mmol/L Potassium 4.5 (3.5-5.1) mmol/L Chloride 104 (98-107) mmol/L Carbon Dioxide 25 (22-30) mmol/L Anion Gap 8 mmol/L BUN 20 H (7-17) mg/dL Creatinine 0.89 (0.52-1.04) mg/dL Est GFR (CKD-EPI)AfAm 70 (>60 ml/min/1.73 sqM) Est GFR (CKD-EPI)NonAf 61 (>60 ml/min/1.73 sqM) Glucose 164 H (74-99) mg/dL Calcium 9.0 (8.4-10.2) mg/dL Total Bilirubin 1.0 (0.2-1.3) mg/dL AST 28 (14-36) U/L ALT 13 (4-34) U/L Alkaline Phosphatase 132 H (38-126) U/L Troponin I (0.000-0.034) ng/mL NT-Pro-B Natriuret Pep 2570 pg/mL Total Protein 6.6 (6.3-8.2) g/dL Albumin 3.5 (3.5-5.0) g/dL Influenza Type A (PCR) Not Detected (Not Detectd) Influenza Type B (PCR) Not Detected (Not Detectd) RSV (PCR) Not Detected (Not Detectd) SARS-CoV-2 (PCR) Not Detected (Not Detectd) 07/31/23 07/31/23 Range/Units 10:18 10:18 WBC (3.8-10.6) k/uL RBC (3.80-5.40) m/uL Hgb (11.4-16.0) gm/dL Hct (34.0-46.0) % MCV (80.0-100.0) fL MCH (25.0-35.0) pg MCHC (31.0-37.0) g/dL RDW (11.5-15.5) % Plt Count (150-450) k/uL MPV Neutrophils % % Lymphocytes % % Monocytes % % Eosinophils % % Basophils % % Neutrophils # (1.3-7.7) k/uL Lymphocytes # (1.0-4.8) k/uL Monocytes # (0-1.0) k/uL Eosinophils # (0-0.7) k/uL Basophils # (0-0.2) k/uL Hypochromasia PT 11.2 (10.0-12.5) sec INR 1.0 (<1.2) APTT 25.0 (22.0-30.0) sec Sodium (137-145) mmol/L Potassium (3.5-5.1) mmol/L Chloride (98-107) mmol/L Carbon Dioxide (22-30) mmol/L Anion Gap mmol/L BUN (7-17) mg/dL Creatinine (0.52-1.04) mg/dL Est GFR (CKD-EPI)AfAm (>60 ml/min/1.73 sqM) Est GFR (CKD-EPI)NonAf (>60 ml/min/1.73 sqM) Glucose (74-99) mg/dL Calcium (8.4-10.2) mg/dL Total Bilirubin (0.2-1.3) mg/dL AST (14-36) U/L ALT (4-34) U/L Alkaline Phosphatase (38-126) U/L Troponin I <0.012 (0.000-0.034) ng/mL NT-Pro-B Natriuret Pep pg/mL Total Protein (6.3-8.2) g/dL Albumin (3.5-5.0) g/dL Influenza Type A (PCR) (Not Detectd) Influenza Type B (PCR) (Not Detectd) RSV (PCR) (Not Detectd) SARS-CoV-2 (PCR) (Not Detectd) - EKG Data EKG Comments: 12-lead Electrocardiogram Interpretation Note EKG was reviewed and interpreted by myself. 12-lead ECG performed at 0832 is interpreted by me as revealing normal sinus rhythm at a rate of 58 beats per minute. [place] is normal. LA interval is 170 ms, QRS duration is 120 ms, QTc is 434 ms.. There were nonspecific ST or T wave abnormalities to suggest myocardial ischemia or injury. R wave progression across the precordium was s atisfactory. By my interpretation this EKG is non-diagnostic for acute ischemia. (Tacho Yadav) Disposition <Trina Bronson - Last Filed: 07/31/23 10:15> Is patient prescribed a controlled substance at d/c from ED?: No Time of Disposition: 13:08 <Tacho Yadav - Last Filed: 07/31/23 15:22> Clinical Impression: Asthma Disposition: HOME SELF-CARE Condition: Good Instructions (If sedation given, give patient instructions): Asthma (ED) Prescriptions: predniSONE [Deltasone] 40 mg PO DAILY 5 Days #10 tab Referrals: Ross Ro DO [Primary Care Provider] - 1-2 days
[2023-07-31 10:41] LABS: Prothrombin Time 11.2 sec (10.0-12.5)
[2023-07-31 10:46] LABS: ALT 13 U/L (4-34); African American GFR (CKD) 70 (>60 ml/min/1.73 sqM); Albumin 3.5 g/dL (3.5-5.0); Anion Gap 8 mmol/L; Blood Urea Nitrogen 20 mg/dL (7-17); Carbon Dioxide 25 mmol/L (22-30); Chloride 104 mmol/L (98-107); Glucose 164 mg/dL (74-99); Non-African American GFR(CKD) 61 (>60 ml/min/1.73 sqM); Sodium 137 mmol/L (137-145); Total Protein 6.6 g/dL (6.3-8.2)
[2023-07-31 10:47] LABS: AST 28 U/L (14-36); Alkaline Phosphatase 132 U/L (38-126); Potassium 4.5 mmol/L (3.5-5.1)
[2023-07-31 10:48] LABS: Basophils % (A) 1 %; Eosinophils # (A) 0.6 k/uL (0-0.7); Eosinophils % (A) 9 %; HCT 33.5 % (34.0-46.0); HGB 10.1 gm/dL (11.4-16.0); Hypochromasia Moderate; Lymphocytes # (A) 1.1 k/uL (1.0-4.8); Lymphocytes % (A) 17 %; MCH 29.4 pg (25.0-35.0); MCHC 30.2 g/dL (31.0-37.0); MCV 97.2 fL (80.0-100.0); Mean Platelet Volume 9.9; Monocytes # (A) 0.4 k/uL (0-1.0); Monocytes % (A) 6 %; Neutrophils # (A) 4.4 k/uL (1.3-7.7); Neutrophils % (A) 67 %; Platelet Count 198 k/uL (150-450); RBC 3.44 m/uL (3.80-5.40); RDW 15.5 % (11.5-15.5); WBC 6.5 k/uL (3.8-10.6)
[2023-07-31 10:53] LABS: NT-Pro-B-Type Natriuretic Pept 2570 pg/mL
[2023-07-31] MEDS: methylPREDNISolone SOD SUCCI 125 MG/2 ML VIAL IV STA (11:28)
[2023-07-31] MEDS: IPRATROPIUM-ALBUTEROL 3 ML NEB INHALATION STA ×3 (11:40→12:11)
[2023-07-31 13:59] VITALS: BP 188/61; PULSE 64
== END 2023-07-31 13:57 | disposition home or self-care (01) ==
LOC: EC 08:23
DX: J45.909 Unspecified asthma, uncomplicated (principal); Z91.040 Latex allergy status
CPT/HCPCS: 36415; 94640; 93005; 83880; 80053; 84484; 85025; 85610; 85730; 87636; 71046; 99285; 96374; J2919

== ENCOUNTER 2024-03-21 10:22 | Emergency (ER) | payer MEDICARE ==
[2024-03-21 10:35] VITALS: TEMP 97.9
--- NOTE | 2024-03-21 10:39 | ED ---
General Adult HPI - General Stated complaint: chest pain Time Seen by Provider: 03/21/24 10:25 Source: patient, RN notes reviewed, old records reviewed - History of Present Illness Initial comments: This is an 84-year-old female who presents to the emergency department stating that for the last 2 days she has been a little short of breath and having some congestion feeling in her chest she describes it as feeling like she is coming down with a cold. Patient states she actually has not been feeling good for about a month and cannot figure out what is going on. Patient has noticed some increased edema in her legs. Patient states she was wonders if she has COVID. Patient states it is not a pressure sensation it is more of a feeling of congestion. Patient states she has had a little bit of a cough but no sputum production. Patient denies any fevers chills patient denies any exposure to anyone has been sick recently. Patient denies any abdominal pain patient has nausea vomiting or diarrhea. - Related Data Home Medications Medication Instructions Recorded Confirmed Metoprolol Tartrate [Lopressor] 100 mg PO BID 02/12/15 03/21/24 Albuterol Sulfate [Proventil Hfa] 2 puff INHALATION RT-Q4H PRN 02/11/17 03/21/24 Atorvastatin [Lipitor] 20 mg PO HS 02/11/17 03/21/24 Insulin Glargine,Hum.rec.anlog 20 units SQ HS 07/31/23 03/21/24 [Lantus Solostar Pen] Insulin Lispro [humaLOG Kwikpen] 7 unit SQ TID-W/MEALS 07/31/23 03/21/24 Multivit-Min/Iron/Folic/Lutein 1 tab PO DAILY 07/31/23 03/21/24 [Centrum Silver Women Tablet] lisinopriL [Zestril] 40 mg PO BID 07/31/23 03/21/24 Ferrous Sulfate [Feosol] 325 mg PO DAILY 03/21/24 03/21/24 Furosemide [Lasix] 40 mg PO DAILY 03/21/24 03/21/24 Magnesium Oxide [Mag-Ox] 400 mg PO BID 03/21/24 03/21/24 Mv-Min/FA/Vit K/Lutein/Zeaxant 1 cap PO DAILY 03/21/24 03/21/24 [Preservision Areds 2 Plus Mv] hydrALAZINE HCL [Apresoline] 50 mg PO TID 03/21/24 03/21/24 Previous Rx's Medication Instructions Recorded Potassium Chloride ER [K-Dur 20] 20 meq PO DAILY #4 tab 03/21/24 Allergies Allergy/AdvReac Type Severity Reaction Status Date / Time latex Allergy Swelling,hi Verified 03/21/24 13:21 ves Review of Systems ROS Statement: Those systems with pertinent positive or pertinent negative responses have been documented in the HPI. ROS Other: All systems not noted in ROS Statement are negative. 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 djd, urinay incont-wears a brief. History of Any Multi-Drug Resistant Organisms: None Reported Past Surgical History: Section, Hernia Repair, Hysterectomy, Joint Replacement, Orthopedic Surgery Additional Past Surgical History / Comment(s): rossana knee replacements, rossana carpal tunnel sx, x4, hernia near naval, rossana cataracts. Past Anesthesia/Blood Transfusion Reactions: No Reported Reaction Past Psychological History: Anxiety Smoking Status: Never smoker Past Alcohol Use History: Occasional Past Drug Use History: None Reported - Past Family History Mother Family Medical History: Cancer, Diabetes Mellitus, Hypertension Father Family Medical History: Myocardial Infarction (CO) General Exam - General Exam Comments Initial Comments: GENERAL: Patient is well-developed and well-nourished. Patient is nontoxic and well- hydrated and is in no acute distress. ENT: Neck is soft and supple. No significant lymphadenopathy is noted. Oropharynx is clear. Moist mucous membranes. Neck has full range of motion without eliciting any pain. EYES: The sclera were anicteric and conjunctiva were pink and moist. Extraocular movements were intact and pupils were equal round and reactive to light. Eyelids were unremarkable. PULMONARY: Unlabored respirations. Good breath sounds bilaterally. No audible rales rhonchi or wheezing was noted. CARDIOVASCULAR: There is a regular rate and rhythm without any murmurs gallops or rubs. ABDOMEN: Soft and nontender with normal bowel sounds. SKIN: Skin is clear with no lesions or rashes and otherwise unremarkable. NEUROLOGIC: Patient is alert and oriented x3. Cranial nerves II through XII are grossly intact. Motor and sensory are also intact. Normal speech, volume and content. Symmetrical smile. MUSCULOSKELETAL: Normal extremities with adequate strength and full range of motion. 2+ bi laterally LYMPHATICS: No significant lymphadenopathy is noted PSYCHIATRIC: Normal psychiatric evaluation. Course Vital Signs 03/21/24 03/21/24 10:27 13:13 Temperature 97.9 F Pulse Rate 69 65 Respiratory 17 18 Rate Blood Pressure 195/70 168/66 O2 Sat by Pulse 98 99 Oximetry Medical Decision Making - Medical Decision Making EKG is interpreted by myself but EKG shows a sinus rhythm with frequent PVCs at 75 bpm OR was 181 QRS is 122 QT interval 397 QTc is 426. Patient's EKG shows no ST segment elevation or depression. Was pt. sent in by a medical professional or institution ([facility], [employer], urgent care, hospital, or intermediate...) When possible be specific @ -No Did you speak to anyone other than the patient for history (EMS, parent, family, police, friend...)? What history was obtained from this source @ -No Did you review nursing and triage notes (agree or disagree)? Why? @ -I reviewed and agree with nursing and triage notes Were old charts reviewed (outside hosp., previous admission, EMS record, old EKG, old radiological studies, urgent care reports/EKG's, intermediate records)? Report findings @ -No old charts were reviewed Differential Diagnosis? @ -Differential Dyspnea: Coronary syndrome, arrhythmia, tamponade, asthma, COPD, pulmonary embolism, pn eumonia, pneumothorax, pulmonary effusion, anaphylaxis, diabetic ketoacidosis, flailed chest, pulmonary contusion, diaphragmatic rupture, anemia, neuromuscular, this is not meant to be an all-inclusive list. EKG interpreted by me (3pts min.). @ -As above X-rays interpreted by me (1pt min.). @ -Chest x-ray shows mild pulmonary edema CT interpreted by me (1pt min.). @ -None done U/S interpreted by me (1pt. min.). @ -None done What testing was considered but not performed or refused? (CT, X-rays, U/S, labs)? Why? @ -None What meds were considered but not given or refused? Why? @ -None Did you discuss the management of the patient with other professionals (professionals i.e. , PA, [employer], lab, RT, psych nurse, social media project manager, editorial director, teacher, equal employment opportunity officer, child support case officer)? Give summary @ -No Was smoking cessation discussed for >3mins.? @ -No Was critical care preformed (if so, how long)? @ -No Were there social determinants of health that impacted care today? How? (Homelessness, low income, unemployed, alcoholism, drug addiction, transportation, low edu. Level, literacy, decrease access to med. care, [facility], rehab)? @ -No Was there de-escalation of care discussed even if they declined (Discuss DNR or withdrawal of care, Hospice)? DNR status @ -No What co-morbidities impacted this encounter? (DM, HTN, Smoking, COPD, CAD, Cancer, CVA, ARF, Chemo, Hep., AIDS, mental health diagnosis, sleep apnea, morbid obesity)? @ -None Was patient admitted / discharged? Hospital course, mention meds given and route, prescriptions, significant lab abnormalities, going to OR and other pertinent info. @ -Patient received Lasix in the emergency department. Patient will be discharged home with instructions to increase her Lasix twice a day for 4 days and follow-up with a primary medical care doctor Undiagnosed new problem with uncertain prognosis? @ -No Drug Therapy requiring intensive monitoring for toxicity (Heparin, Nitro, Insulin, Cardizem)? @ -No Were any procedures done? @ -No Diagnosis/symptom? @ -Mild pulmonary edema Acute, or Chronic, or Acute on Chronic? @ -Acute Uncomplicated (without systemic symptoms) or Complicated (systemic symptoms)? @ -Complicated Side effects of treatment? @ -No Exacerbation, Progression, or Severe Exacerbation? @ -No Poses a threat to life or bodily function? How? (Chest pain, [place], CO, pneumonia, PE, COPD, DKA, ARF, appy, cholecystitis, CVA, Diverticulitis, Homicidal, Suicidal, threat to staff... and all critical care pts) @ -No - Lab Data Result diagrams: 03/21/24 10:49 03/21/24 10:49 Lab Results 03/21/24 03/21/24 03/21/24 Range/Units 10:49 10:49 10:49 WBC 6.2 (3.8-10.6) k/uL RBC 3.56 L (3.80-5.40) m/uL Hgb 11.0 L (11.4-16.0) gm/dL Hct 34.4 (34.0-46.0) % MCV 96.8 (80.0-100.0) fL MCH 31.0 (25.0-35.0) pg MCHC 32.1 (31.0-37.0) g/dL RDW 15.2 (11.5-15.5) % Plt Count 171 (150-450) k/uL MPV 8.8 Neutrophils % 70 % Lymphocytes % 18 % Monocytes % 5 % Eosinophils % 5 % Basophils % 0 % Neutrophils # 4.3 (1.3-7.7) k/uL Lymphocytes # 1.1 (1.0-4.8) k/uL Monocytes # 0.3 (0-1.0) k/uL Eosinophils # 0.3 (0-0.7) k/uL Basophils # 0.0 (0-0.2) k/uL Hypochromasia Slight PT 11.5 (10.0-12.5) sec INR 1.0 (<1.2) APTT 19.6 L (22.0-30.0) sec Sodium 136 L (137-145) mmol/L Potassium 4.4 (3.5-5.1) mmol/L Chloride 97 L (98-107) mmol/L Carbon Dioxide 32 H (22-30) mmol/L Anion Gap 7 mmol/L BUN 18 H (7-17) mg/dL Creatinine 1.06 H (0.52-1.04) mg/dL Est GFR (CKD-EPI)AfAm 57 (>60 ml/min/1.73 sqM) Est GFR (CKD-EPI)NonAf 49 (>60 ml/min/1.73 sqM) Glucose 225 H (74-99) mg/dL Calcium 9.5 (8.4-10.2) mg/dL Magnesium 1.8 (1.6-2.3) mg/dL Total Bilirubin 0.9 (0.2-1.3) mg/dL AST 19 (14-36) U/L ALT 13 (4-34) U/L Alkaline Phosphatase 112 (38-126) U/L Troponin I (0.000-0.034) ng/mL NT-Pro-B Natriuret Pep 2360 pg/mL Total Protein 6.4 (6.3-8.2) g/dL Albumin 3.4 L (3.5-5.0) g/dL Influenza Type A (PCR) (Not Detectd) Influenza Type B (PCR) (Not Detectd) RSV (PCR) (Not Detectd) SARS-CoV-2 (PCR) (Not Detectd) 03/21/24 03/21/24 Range/Units 10:49 10:49 WBC (3.8-10.6) k/uL RBC (3.80-5.40) m/uL Hgb (11.4-16.0) gm/dL Hct (34.0-46.0) % MCV (80.0-100.0) fL MCH (25.0-35.0) pg MCHC (31.0-37.0) g/dL RDW (11.5-15.5) % Plt Count (150-450) k/uL MPV Neutrophils % % Lymphocytes % % Monocytes % % Eosinophils % % Basophils % % Neutrophils # (1.3-7.7) k/uL Lymphocytes # (1.0-4.8) k/uL Monocytes # (0-1.0) k/uL Eosinophils # (0-0.7) k/uL Basophils # (0-0.2) k/uL Hypochromasia PT (10.0-12.5) sec INR (<1.2) APTT (22.0-30.0) sec Sodium (137-145) mmol/L Potassium (3.5-5.1) mmol/L Chloride (98-107) mmol/L Carbon Dioxide (22-30) mmol/L Anion Gap mmol/L BUN (7-17) mg/dL Creatinine (0.52-1.04) mg/dL Est GFR (CKD-EPI)AfAm (>60 ml/min/1.73 sqM) Est GFR (CKD-EPI)NonAf (>60 ml/min/1.73 sqM) Glucose (74-99) mg/dL Calcium (8.4-10.2) mg/dL Magnesium (1.6-2.3) mg/dL Total Bilirubin (0.2-1.3) mg/dL AST (14-36) U/L ALT (4-34) U/L Alkaline Phosphatase (38-126) U/L Troponin I <0.012 (0.000-0.034) ng/mL NT-Pro-B Natriuret Pep pg/mL Total Protein (6.3-8.2) g/dL Albumin (3.5-5.0) g/dL Influenza Type A (PCR) Not Detected (Not Detectd) Influenza Type B (PCR) Not Detected (Not Detectd) RSV (PCR) Not Detected (Not Detectd) SARS-CoV-2 (PCR) Not Detected (Not Detectd) Disposition Clinical Impression: Pulmonary edema Disposition: HOME SELF-CARE Condition: Good Instructions (If sedation given, give patient instructions): Pulmonary Edema (ED) Additional Instructions: Patient should take Lasix 40 mg twice a day for 4 days. After that patient should go back to her Lasix once a day. Patient should follow-up with her primary medical care doctor Prescriptions: Potassium Chloride ER [K-Dur 20] 20 meq PO DAILY #4 tab Is patient prescribed a controlled substance at d/c from ED?: No Referrals: Ross Ro DO [Primary Care Provider] - 1-2 days Time of Disposition: 13:58
[2024-03-21 10:57] LABS: Basophils % (A) 0 %; Eosinophils # (A) 0.3 k/uL (0-0.7); Eosinophils % (A) 5 %; HCT 34.4 % (34.0-46.0); Hypochromasia Slight; Lymphocytes # (A) 1.1 k/uL (1.0-4.8); Lymphocytes % (A) 18 %; MCHC 32.1 g/dL (31.0-37.0); MCV 96.8 fL (80.0-100.0); Mean Platelet Volume 8.8; Monocytes # (A) 0.3 k/uL (0-1.0); Monocytes % (A) 5 %; Neutrophils # (A) 4.3 k/uL (1.3-7.7); Neutrophils % (A) 70 %; Platelet Count 171 k/uL (150-450); RBC 3.56 m/uL (3.80-5.40); RDW 15.2 % (11.5-15.5); WBC 6.2 k/uL (3.8-10.6)
--- NOTE | 2024-03-21 11:05 | XR ---
EXAMINATION TYPE: XR chest 2V DATE OF EXAM: 03/21/2024 10:59 AM COMPARISON: Chest radiographs from 07/31/2023, 03/07/2023 TECHNIQUE: XR chest 2V Frontal and lateral views of the chest. CLINICAL INDICATION:Female, 84 years old with history of difficulty breathing; FINDINGS: Lungs/Pleura: There is no evidence of pleural effusion, focal consolidation, or pneumothorax. Chroni c elevation of the right hemidiaphragm. Pulmonary vascularity: Unremarkable. Heart/mediastinum: Cardiomediastinal silhouette is unremarkable. Atherosclerotic calcifications are seen in the aorta. Musculoskeletal: Multiple level degenerative disc disease changes seen throughout the spine. IMPRESSION: No acute cardiopulmonary disease/process. No significant change from prior exams. [facility], , 03/21/2024 11:02 AM
[2024-03-21 11:11] LABS: ALT 13 U/L (4-34); AST 19 U/L (14-36); African American GFR (CKD) 57 (>60 ml/min/1.73 sqM); Albumin 3.4 g/dL (3.5-5.0); Alkaline Phosphatase 112 U/L (38-126); Anion Gap 7 mmol/L; Blood Urea Nitrogen 18 mg/dL (7-17); Calcium 9.5 mg/dL (8.4-10.2); Carbon Dioxide 32 mmol/L (22-30); Chloride 97 mmol/L (98-107); Glucose 225 mg/dL (74-99); Magnesium 1.8 mg/dL (1.6-2.3); Non-African American GFR(CKD) 49 (>60 ml/min/1.73 sqM); Potassium 4.4 mmol/L (3.5-5.1); Sodium 136 mmol/L (137-145); Total Bilirubin 0.9 mg/dL (0.2-1.3); Total Protein 6.4 g/dL (6.3-8.2)
[2024-03-21 11:19] LABS: NT-Pro-B-Type Natriuretic Pept 2360 pg/mL
[2024-03-21 11:23] LABS: Prothrombin Time 11.5 sec (10.0-12.5)
[2024-03-21 11:29] LABS: Partial Thromboplastin Time 19.6 sec (22.0-30.0)
[2024-03-21 11:31] LABS: Influenza A Not Detected (Not Detectd); Influenza B Not Detected (Not Detectd); RSV Not Detected (Not Detectd)
[2024-03-21] MEDS: FUROSEMIDE 10 MG/ML 4 ML VIAL IV STA (13:12)
[2024-03-21 13:13] VITALS: RESP 18
[2024-03-21 14:38] VITALS: BP 146/85; PULSE 66
== END 2024-03-21 15:22 | disposition home or self-care (01) ==
LOC: EC 10:22
DX: J81.1 Chronic pulmonary edema (principal); Z91.040 Latex allergy status
CPT/HCPCS: 36415; 93005; 83880; 80053; 83735; 84484; 85025; 85610; 85730; 87636; 71046; 99285; 96374; J1940